=== PATIENT | female | born 1955 | race Caucasian/White ===

== ENCOUNTER → 2017-03-09 | Outpatient (CLI) | payer BC ==
[2017-03-09 11:01] VITALS: BP 118/78; PULSE 83; TEMP 97.9; BMI 30.9
--- NOTE | 2017-03-09 19:39 | FL ---
Swallow HISTORY: Dysphagia Correlation to previous exam April Patient was given high density barium to drink. Lap band shows a more vertical orientation. There is a scoliotic curvature of the lumbar spine. Degen erative disc changes are present. Following ingestion of the contrast material a somewhat distended esophagus was noted which may be fl uid-filled. There is obstruction to flow across the lap band. No evident leak. IMPRESSION: Obstruction at the level of the lap band. Additional findings above.
--- NOTE | 2017-03-12 09:03 | P.HPBAR ---
Bariatric H&P - History & Physicial H&P Date: 03/09/17 History & Physicial: Visit/CC: follow up visit Patient initial contact: Initial weight: Initial weight in pounds: Height: 5 ft 4 in Initial BMI: Last weight: Current weight: 81.873 kg Current weight in pounds: 180.50 Current BMI: 30.9 [place] body weight (based on NIH guidelines): 54.431 kg Excess body weight loss: The patient is a 62 year-old F who presents for Bariatric Assessment. Patient presents today for LAP-BAND adjustment. She states that she has had nausea vomiting for several months. Past Medical History History of Any Multi-Drug Resistant Organisms: None Reported Smoking Status: Never smoker Surgical - Exam Vital Signs Temp Pulse BP 97.9 F 83 118/78 03/09/17 10:44 03/09/17 10:44 03/09/17 10:44 - General well developed, no distress - Eyes PERRL - ENT normal pinna, normal nares - Neck no masses - Respiratory normal expansion - Cardiovascular Rhythm: regular - Abdomen Abdomen: soft, non tender Bariatric Assessment & Plan Plan: The patient's lap band adjustment. 10 mL is a snow blower band. She was ill drink water without difficulty. A follow-up in 2 weeks. Bariatric Checklist Checklist: Plan: Checklist: EGD: 1. Hiatal hernia: 2. H. Pylori: HgbA1c: Vitamin D: Smoking: Never smoker Primary care physician referral: dr gregory Psychiatry clearance: Cardiology clearance: Sleep study: Diet journal: VTE risk score: VTE risk level: Rehab needs at discharge:
== END | disposition home or self-care (01) ==
LOC: BARWHC3 10:19
PROVIDERS: ATTEND Surgery
DX: K56.69 Other intestinal obstruction (principal); R13.10 Dysphagia, unspecified
CPT/HCPCS: 74220; 99202; 99213

== ENCOUNTER 2017-03-10 10:28 | Emergency (ER) | payer BC ==
[2017-03-10] MEDS ORDERED: ASPIRIN 81 MG CHEW PO STA (10:48)
[2017-03-10 11:14] VITALS: RESP 18
[2017-03-10 11:14] LABS: Basophils % (A) 0 %; CH 32.9; CHCM 34.2; Eosinophils # (A) 0.1 k/uL (0-0.7); Eosinophils % (A) 1 %; HCT 40.8 % (34.0-46.0); HDW 2.32; HGB 13.7 gm/dL (11.4-16.0); Luc # (Auto) 0.15; Luc % (Auto) 2; Lymphocytes # (A) 1.4 k/uL (1.0-4.8); Lymphocytes % (A) 20 %; MCH 32.4 pg (25.0-35.0); MCHC 33.4 g/dL (31.0-37.0); MCV 96.7 fL (80.0-100.0); Mean Platelet Volume 6.4; Monocytes # (A) 0.5 k/uL (0-1.0); Monocytes % (A) 7 %; Neutrophils # (A) 4.9 k/uL (1.3-7.7); Neutrophils % (A) 69 %; RBC 4.22 m/uL (3.80-5.40); RDW 12.4 % (11.5-15.5); WBC 7.1 k/uL (3.8-10.6); WBC (Perox) 7.05
[2017-03-10] MEDS: NITROGLYCERIN SL TABS 0.4 MG TAB SUBLINGUAL STA ×2 (11:14→11:19)
[2017-03-10 11:26] LABS: ALT 27 U/L (9-52); AST 21 U/L (14-36); Alkaline Phosphatase 89 U/L (38-126); Amylase 72 U/L (30-110); Anion Gap 10 mmol/L; Blood Urea Nitrogen 20 mg/dL (7-17); Calcium 9.4 mg/dL (8.4-10.2); Carbon Dioxide 26 mmol/L (22-30); Chloride 105 mmol/L (98-107); Glucose 110 mg/dL (74-99); Magnesium 1.8 mg/dL (1.6-2.3); Non-African American GFR(MDRD) >60 (>60 ml/min/1.73 sqM); Potassium 3.5 mmol/L (3.5-5.1); Sodium 141 mmol/L (137-145); Total Bilirubin 0.6 mg/dL (0.2-1.3)
[2017-03-10 11:28] LABS: Partial Thromboplastin Time 22.4 sec (22.0-30.0); Prothrombin Time 10.2 sec (9.0-12.0)
[2017-03-10 11:36] LABS: Creatine Kinase 105 U/L (30-135)
[2017-03-10 11:49] LABS: Creatine Kinase MB 1.6 ng/mL (0.0-2.4); Troponin I <0.012 ng/mL (0.000-0.034)
--- NOTE | 2017-03-10 11:54 | XR ---
EXAMINATION TYPE: XR chest 2V DATE OF EXAM: 03/10/2017 11:41 AM COMPARISON: 02/04/2017 TECHNIQUE: PA and lateral views submitted. HISTORY: Chest pain FINDINGS: The lungs are clear and there is no pneumothorax, pleural effusion, or focal pneumonia. Hyperinflat ion suggests COPD. Hypertrophic and degenerative change of the spine. Arthropathy of the shoulders. N o overt failure. Deformity of the left lateral rib cage suggest previous trauma. IMPRESSION: 1. No acute process.
--- NOTE | 2017-03-10 12:19 | ED ---
Chest Pain HPI - General Chief Complaint: Chest Pain Stated Complaint: chest pain Time Seen by Provider: 03/10/17 10:38 Source: patient, RN notes reviewed Mode of arrival: wheelchair Limitations: no limitations - History of Present Illness Initial Comments: This is a 62-year-old female who presents with complaints of some abdominal pain today. She states she had an episode last evening and this morning about 30 minutes if radiation of pain it radiated up into her and across her chest sharp somewhat achy in nature it was somewhat episodic. She does states she does had her LAP-BAND decompress yesterday. She has of a history of reflux. She denies any fevers chills sweats cough or other symptoms no nausea vomiting diarrhea no fevers chills or sweats. MD Complaint: chest pain - Related Data Home Medications Medication Instructions Recorded Confirmed Biotin 5 mg PO DAILY 03/08/17 03/10/17 Cholecalciferol [Vitamin D3] 2,000 tab PO DAILY 03/08/17 03/10/17 Omeprazole 40 mg PO DAILY 03/08/17 03/10/17 traMADol HCL [Ultram] 50 mg PO DAILY PRN 03/08/17 03/10/17 Albuterol Sulfate [Proair Hfa] 1 - 2 puff INHALATION RT-Q6H PRN 03/10/17 Calcium Carbonate [Calcium] 600 mg PO DAILY 03/10/17 03/10/17 Enalapril/Hydrochlorothiazide 1 tab PO DAILY 03/10/17 03/10/17 [Enalapril-Hctz 10-25 mg Tablet] Tiotropium 18 Mcg/Puff [Spiriva] 1 cap INHALATION RT-DAILY 03/10/17 03/10/17 Allergies Allergy/AdvReac Type Severity Reaction Status Date / Time Penicillins Allergy Rash/Hives Verified 03/10/17 11:31 Review of Systems ROS Statement: Those systems with pertinent positive or pertinent negative responses have been documented in the HPI. ROS Other: All systems not noted in ROS Statement are negative. EKG Findings - EKG Results: EKG: interpreted by JOHN, WNL, sinus rhythm, normal axis, normal QRS, normal ST/ T, no acute changes (Normal sinus rhythm rate of 81 a IA interval 144 QRS duration 88 QT/QTC 366/425 st-t wave changes.) Past Medical History Past Medical History: Asthma, COPD, GERD/Reflux, Hypertension History of Any Multi-Drug Resistant Organisms: None Reported Past Surgical History: Bariatric Surgery Additional Past Surgical History / Comment(s): cataract BL Past Psychological History: No Psychological Hx Reported Smoking Status: Never smoker Past Alcohol Use History: Occasional Past Drug Use History: None Reported General Exam - General Exam Comments Initial Comments: This is a well-developed well-nourished awake alert oriented 3 female Limitations: no limitations General appearance: alert, in no apparent distress Head exam: Present: atraumatic, normocephalic, normal inspection Eye exam: Present: normal appearance, PERRL, EOMI. Absent: scleral icterus, conjunctival injection, periorbital swelling ENT exam: Present: normal exam, mucous membranes moist Neck exam: Present: normal inspection. Absent: tenderness, meningismus, lymphadenopathy Respiratory exam: Present: normal lung sounds bilaterally, chest wall tenderness (Some reproducible tenderness palpation over the left costochondral margin.). Absent: respiratory distress, wheezes, rales, rhonchi, stridor Cardiovascular Exam: Present: regular rate, normal rhythm, normal heart sounds. Absent: systolic murmur, diastolic murmur, rubs, gallop, clicks GI/Abdominal exam: Present: soft, normal bowel sounds. Absent: distended, tenderness, guarding, rebound, rigid Extremities exam: Present: normal inspection, full ROM, normal capillary refill. Absent: tenderness, pedal edema, joint swelling, calf tenderness Back exam: Present: normal inspection Neurological exam: Present: alert, oriented X3, CN II-XII intact Psychiatric exam: Present: normal affect, normal mood Skin exam: Present: warm, dry, intact, normal color. Absent: rash Course Vital Signs 03/10/17 03/10/17 03/10/17 10:29 11:13 11:18 Temperature 98.9 F Pulse Rate 86 85 90 Respiratory 17 18 18 Rate Blood Pressure 152/79 142/76 124/66 O2 Sat by Pulse 98 95 95 Oximetry 03/10/17 03/10/17 03/10/17 11:21 12:22 13:48 Temperature 99.2 F Pulse Rate 92 87 78 Respiratory 18 18 18 Rate Blood Pressure 121/64 100/64 148/79 O2 Sat by Pulse 95 95 96 Oximetry Chest Pain MDM - MDM I did review the imaging and report no acute evidence of pulmonary embolism. There was a 1.4; fact contain right adrenal mass consistent with an adenoma. The patient will be discharged this is a noncardiac nonpulmonary etiology. Disposition Clinical Impression: Atypical chest pain, Esophageal spasm Disposition: HOME SELF-CARE Condition: Good Instructions: Chest Pain (ED), Esophageal Spasm (ED) Referrals: Richar Sanchez MD [Primary Care Provider] - 1-2 days Juan Manuel Hairston MD [STAFF PHYSICIAN] - 1-2 days
[2017-03-10] MEDS ORDERED: RX INFO: IV CONTRAST WAS GIVEN 1 EACH MISC MISCELLANE PRN (12:54)
--- NOTE | 2017-03-10 14:00 | CT ---
EXAMINATION TYPE: CT angio chest DATE OF EXAM: 03/10/2017 1:49 PM COMPARISON: Previous study dated 01/26/2010. HISTORY: Chest pain CT DLP: 317.6 mGycm Automated exposure control for dose reduction was used. CONTRAST: CTA scan of the thorax is performed with IV Contrast, patient injected with 73 mL of Omnipaque 350, p ulmonary embolism protocol. FINDINGS: The lungs are clear. There is no significant axillary, internal mammary, mediastinal or hilar adenopathy. There is no evidence of pulmonary embolus. The aorta is normal in caliber without evidence of dissection. There is a lap band in place. There is a mature pouch. There is patulous of the remainder the esophag us. There is a 1.4 cm fat-containing right adrenal mass. The patient's left adrenal mass is not well seen on today's examination. The remainder the visualized upper abdomen is unremarkable. There is hypertrophic spondylosis within the dorsal spine. No bony destructive lesion is seen. IMPRESSION: 1. THIS EXAMINATION IS NEGATIVE FOR PULMONARY EMBOLUS. 2. STATUS POST LAP BAND. 3. 1.4 CM FAT-CONTAINING RIGHT ADRENAL MASS. THIS IS UNDOUBTABLY AN ADRENAL ADENOMA. 4. DEGENERATIVE CHANGE WITHIN THE SPINE.
[2017-03-10 14:18] VITALS: BP 122/70; PULSE 82; TEMP 98.1
== END 2017-03-10 14:24 | disposition home or self-care (01) ==
LOC: EC 10:28
DX: R07.89 Other chest pain (principal); K22.4 Dyskinesia of esophagus; J44.9 Chronic obstructive pulmonary disease, unspecified; I10 Essential (primary) hypertension; K21.9 Gastro-esophageal reflux disease without esophagitis; Z79.899 Other long term (current) drug therapy; Z88.0 Allergy status to penicillin; Z98.84 Bariatric surgery status
CPT/HCPCS: 36415; 93005; 85379; 83880; 80053; 82150; 82550; 82553; 83690; 83735; 84484; 85025; 85610; 85730; 71020; 71275; 99285; Q9967

== ENCOUNTER → 2017-03-22 | Outpatient (CLI) | payer BC ==
[2017-03-22 13:18] VITALS: BP 123/75; PULSE 83; RESP 14; TEMP 98.8; BMI 31.8
--- NOTE | 2017-03-22 13:33 | P.HPBAR ---
Bariatric H&P - History & Physicial H&P Date: 03/22/17 History & Physicial: Visit/CC: band adjustment/sleeve consult Patient initial contact: Initial weight: 123.831 kg Initial weight in pounds: 273.00 Height: 5 ft 4 in Initial BMI: 46.8 Last weight: Current weight: 84.232 kg Current weight in pounds: 185.70 Current BMI: 31.8 [place] body weight (based on NIH guidelines): 54.431 kg Excess body weight loss: 57.0% The patient is a 62 year-old F who presents for Bariatric Assessment. Patient presents today for adjustment of her LAP-BAND. Patient states that she is hungry. She is gaining a prostate 5 pounds since her last visit. Her band was emptied week ago due to chronic dysphagia and GERD. Her GERD symptoms have resolved since her band was emptied. Past Medical History Past Medical History: Asthma, COPD, GERD/Reflux, Hypertension History of Any Multi-Drug Resistant Organisms: None Reported Past Surgical History: Bariatric Surgery Additional Past Surgical History / Comment(s): cataract BL Past Psychological History: No Psychological Hx Reported Smoking Status: Never smoker Past Alcohol Use History: Occasional Past Drug Use History: None Reported Surgical - Exam Vital Signs Temp Pulse Resp BP 98.8 F 83 14 123/75 03/22/17 13:08 03/22/17 13:08 03/22/17 13:08 03/22/17 13:08 - General well developed, no distress - Eyes PERRL - ENT normal pinna - Respiratory normal expansion - Cardiovascular Rhythm: regular - Abdomen Abdomen: soft, non tender Bariatric Assessment & Plan Plan: Patient LAP-BAND was adjusted. She had 5 mL added to her band. She'll require without difficulty. She'll follow-up in 2 weeks. Bariatric Checklist Checklist: Plan: Checklist: EGD: 1. Hiatal hernia: 2. H. Pylori: HgbA1c: Vitamin D: Smoking: Never smoker Primary care physician referral: dr gregory Psychiatry clearance: Cardiology clearance: Sleep study: Diet journal: VTE risk score: VTE risk level: Rehab needs at discharge:
== END | disposition home or self-care (01) ==
LOC: BARWHC3 12:28
PROVIDERS: ATTEND Surgery
DX: Z48.815 Encounter for surgical aftercare following surgery on the digestive system (principal); Z98.84 Bariatric surgery status
CPT/HCPCS: 99212

== ENCOUNTER → 2017-04-26 | Outpatient (CLI) | payer BC ==
[2017-04-26 13:47] VITALS: BP 124/56; PULSE 87; RESP 14; TEMP 98.3; BMI 34.0
--- NOTE | 2017-04-26 16:29 | P.HPBAR ---
Bariatric H&P - History & Physicial H&P Date: 04/26/17 History & Physicial: Visit/CC: band fill/sleeve discussion Patient initial contact: Initial weight: 123.831 kg Initial weight in pounds: 273.00 Height: 5 ft 4 in Initial BMI: 46.8 Last weight: 186 Current weight: 90.038 kg Current weight in pounds: 198.50 Current BMI: 34.0 [place] body weight (based on NIH guidelines): 54.431 kg Excess body weight loss: 48.6% The patient is a 62 year-old F who presents for Bariatric Assessment. Patient is requesting to convert sleeve gastrectomy. She's had chronic problems with dysphagia from her LAP-BAND. Her LAP-BAND was loosened last visit. She has gained 14 pounds since this adjustment was performed. Past Medical History Past Medical History: Asthma, COPD, GERD/Reflux, Hypertension History of Any Multi-Drug Resistant Organisms: None Reported Past Surgical History: Bariatric Surgery Additional Past Surgical History / Comment(s): cataract BL Past Psychological History: No Psychological Hx Reported Smoking Status: Never smoker Surgical - Exam Vital Signs Temp Pulse Resp BP 98.3 F 87 14 124/56 04/26/17 13:35 04/26/17 13:35 04/26/17 13:35 04/26/17 13:35 - General well developed, no distress - Eyes PERRL - ENT normal pinna - Neck no masses - Respiratory normal expansion - Cardiovascular Rhythm: regular - Abdomen Abdomen: soft, non tender Bariatric Assessment & Plan Plan: Dysphagia secondary to LAP-BAND. Patient had her Brijesh adjusted slightly today she has 3 mL added to her band. Her GERD symptoms were improved once her band was entered last week. She has significant recurrence her GERD symptoms will have fluid removed from her band. The patient will be scheduled for follow -up in one month. We'll attempt obtain insurance authorization for conversion sleeve gastrectomy secondary to her chronic issues with dysphagia. Bariatric Checklist Checklist: Plan: Checklist: EGD: 1. Hiatal hernia: 2. H. Pylori: HgbA1c: Vitamin D: Smoking: Never smoker Primary care physician referral: dr gregory Psychiatry clearance: Cardiology clearance: Sleep study: Diet journal: VTE risk score: VTE risk level: Rehab needs at discharge:
== END | disposition home or self-care (01) ==
LOC: BARWHC3 13:12
PROVIDERS: ATTEND Surgery
DX: Z48.815 Encounter for surgical aftercare following surgery on the digestive system (principal); Z98.84 Bariatric surgery status; Z68.34 Body mass index [BMI] 34.0-34.9, adult; R13.10 Dysphagia, unspecified
CPT/HCPCS: 99212

== ENCOUNTER → 2017-05-05 | Outpatient (CLI) | payer BC ==
--- NOTE | 2017-05-06 09:03 | MM ---
Reason for exam: screening (asymptomatic). Last mammogram was performed 1 year and 8 months ago. History: Patient is postmenopausal and is nulliparous. Family history of premenopausal breast cancer in mother at age 41. Took estrogen for 1 year. Took progesterone for 1 year. Physical Findings: A clinical breast exam by your physician is recommended on an annual basis and results should be correlated with mammographic findings. MG Screening Mammo w CAD Bilateral CC and MLO view(s) were taken. Prior study comparison: September 18, 2015, bilateral MG screening mammo w CAD. March 20, 2014, bilateral MG screening mammo w CAD. The breast tissue is heterogeneously dense. This may lower the sensitivity of mammography. Finding: There is a 6 mm equal density (isodense), partially circumscribed irregular mass located 4 cm from the nipple in the inner quadrant, anterior position of the right breast. New finding since September 18, 2015 and March 20, 2014. ASSESSMENT: Incomplete: need additional imaging evaluation, BI-RAD 0 RECOMMENDATION: Special view mammogram of the right breast. If lesion persists on supplemental views, image directed ultrasound is recommended. [facility] will attempt to contact patient to return for supplemental views and ultrasound if indicated.
== END | disposition home or self-care (01) ==
LOC: RADMAMWWP 10:44
PROVIDERS: ATTEND Internal Medicine
DX: Z12.31 Encounter for screening mammogram for malignant neoplasm of breast (principal); Z80.3 Family history of malignant neoplasm of breast

== ENCOUNTER → 2017-05-20 | Outpatient (CLI) | payer BC ==
--- NOTE | 2017-05-20 12:39 | MM ---
Reason for exam: additional evaluation requested from abnormal screening. Last mammogram was performed less than 1 month ago. History: Patient is postmenopausal and is nulliparous. Family history of premenopausal breast cancer in mother at age 41. Took estrogen for 1 year. Took progesterone for 1 year. Physical Findings: Nurse did not find any significant physical abnormalities on exam. MG Work Up Mamm w CAD RT CC and MLO view(s) were taken of the right breast. Prior study comparison: May 05, 2017, bilateral MG screening mammo w CAD. September 18, 2015, bilateral MG screening mammo w CAD. March 20, 2014, bilateral MG screening mammo w CAD. There are scattered fibroglandular densities. The previously seen right breast asymmetry appears as fibroglandular tissue on spot compression and is similar to prior exams. There is no discrete abnormality. These results were verbally communicated with the patient and result sheet given to the patient on 05/20/17. ASSESSMENT: Negative, BI-RAD 1 RECOMMENDATION: Routine screening mammogram of both breasts in 1 year. Back on schedule.
== END | disposition home or self-care (01) ==
LOC: RADMAMWWP 08:51
PROVIDERS: ATTEND Internal Medicine
DX: R92.8 Other abnormal and inconclusive findings on diagnostic imaging of breast (principal)

== ENCOUNTER → 2017-06-14 | Outpatient (CLI) | payer BC ==
[2017-06-14 14:18] VITALS: BP 144/65; PULSE 97; RESP 16; TEMP 98.3; BMI 35.6
--- NOTE | 2017-06-14 14:23 | P.HPBAR ---
Bariatric H&P - History & Physicial H&P Date: 06/14/17 History & Physicial: Visit/CC: band/sleeve Patient initial contact: Initial weight: 123.831 kg Initial weight in pounds: 273.00 Height: 5 ft 4 in Initial BMI: 46.8 Last weight: 198 Current weight: 94.376 kg Current weight in pounds: 208.00 Current BMI: 35.6 [place] body weight (based on NIH guidelines): 54.431 kg Excess body weight loss: 42.4% The patient is a 62 year-old F who presents for Bariatric Assessment. Patient presents today for lab band follow. She is been unable to have her Brijesh adjusted secondary to issues of chronic dysphagia and GERD and epigastric pain. She is she gained 10 pounds since her last visit. She is awaiting insurance authorization for conversion sleeve gastrectomy. Past Medical History Past Medical History: Asthma, COPD, GERD/Reflux, Hypertension History of Any Multi-Drug Resistant Organisms: None Reported Past Surgical History: Bariatric Surgery Additional Past Surgical History / Comment(s): cataract BL Smoking Status: Never smoker Surgical - Exam Vital Signs Temp Pulse Resp BP 98.3 F 97 16 144/65 06/14/17 14:15 06/14/17 14:15 06/14/17 14:15 06/14/17 14:15 - General well developed, no distress - Abdomen Abdomen: soft, non tender Bariatric Assessment & Plan Plan: Morbid obesity with BMI of 36. Patient will follow-up in 8 weeks. We will obtain insurance authorization conversion sleeve gastrectomy secondary to chronic dysphagia GERD and epigastric pain. Bariatric Checklist Checklist: Plan: Checklist: EGD: 1. Hiatal hernia: 2. H. Pylori: HgbA1c: Vitamin D: Smoking: Never smoker Primary care physician referral: dr gregory Psychiatry clearance: Cardiology clearance: Sleep study: Diet journal: VTE risk score: VTE risk level: Rehab needs at discharge:
== END | disposition home or self-care (01) ==
LOC: BARWHC3 13:35
PROVIDERS: ATTEND Surgery
DX: E66.01 Morbid (severe) obesity due to excess calories (principal); J44.9 Chronic obstructive pulmonary disease, unspecified; K21.9 Gastro-esophageal reflux disease without esophagitis; I10 Essential (primary) hypertension; J45.909 Unspecified asthma, uncomplicated; Z98.84 Bariatric surgery status; Z68.36 Body mass index [BMI] 36.0-36.9, adult
CPT/HCPCS: 99211

== ENCOUNTER → 2017-07-05 | Outpatient (CLI) | payer BC ==
[2017-07-05 11:37] VITALS: BMI 36.5
== END | disposition home or self-care (01) ==
LOC: BARWHC3 08:35
PROVIDERS: ATTEND Surgery
DX: E66.01 Morbid (severe) obesity due to excess calories (principal)
CPT/HCPCS: 97804

== ENCOUNTER → 2017-07-15 | Outpatient (CLI) | payer BC ==
[2017-07-15 10:23] VITALS: BP 139/77; PULSE 70; TEMP 98.2; BMI 37.7
--- NOTE | 2017-07-15 12:44 | P.HPBAR ---
Bariatric H&P - History & Physicial H&P Date: 07/15/17 History & Physicial: Visit/CC: presurgical visit Patient initial contact: Initial weight: 123.831 kg Initial weight in pounds: 273.00 Height: 5 ft 4 in Initial BMI: 46.8 Last weight: Current weight: 99.654 kg Current weight in pounds: 219.70 Current BMI: 37.7 [place] body weight (based on NIH guidelines): 54.431 kg Excess body weight loss: 34.8% The patient is a 62 year-old F who presents for Bariatric Assessment. The patient presents today for her LAP-BAND follow-up. She is requesting fluid removed from her LAP-BAND. She is scheduled for conversion to sleeve gastrectomy. She is going to have her EGD performed . Past Medical History Past Medical History: Asthma, COPD, GERD/Reflux, Hypertension History of Any Multi-Drug Resistant Organisms: None Reported Past Surgical History: Bariatric Surgery Additional Past Surgical History / Comment(s): cataract BL Past Anesthesia/Blood Transfusion Reactions: No Reported Reaction Past Psychological History: No Psychological Hx Reported Smoking Status: Current some day smoker Past Alcohol Use History: Occasional Past Drug Use History: None Reported Surgical - Exam Vital Signs Temp Pulse BP 98.2 F 70 139/77 07/15/17 10:18 07/15/17 10:18 07/15/17 10:18 - General well developed, no distress - Eyes PERRL - ENT normal pinna - Neck no masses - Respiratory normal expansion - Cardiovascular Rhythm: regular - Abdomen Abdomen: soft, non tender Bariatric Assessment & Plan Plan: The patient LAP-BAND was empty. 8 mL was removed from her band. Bariatric Checklist Checklist: Plan: Checklist: EGD: 1. Hiatal hernia: 2. H. Pylori: HgbA1c: Vitamin D: Smoking: Current some day smoker Primary care physician referral: dr gregory Psychiatry clearance: Cardiology clearance: Sleep study: Diet journal: VTE risk score: VTE risk level: Rehab needs at discharge:
== END | disposition home or self-care (01) ==
LOC: BARWHC3 09:52
PROVIDERS: ATTEND Surgery
DX: Z48.815 Encounter for surgical aftercare following surgery on the digestive system (principal); F17.200 Nicotine dependence, unspecified, uncomplicated; Z98.84 Bariatric surgery status
CPT/HCPCS: 99212

== ENCOUNTER → 2017-07-15 | Outpatient (CLI) | payer BC ==
[2017-07-15 10:45] LABS: EKG EKG PERFORMED
[2017-07-15 11:10] LABS: Basophils % (A) 0 %; CH 32.2; CHCM 32.7; Eosinophils # (A) 0.3 k/uL (0-0.7); Eosinophils % (A) 3 %; HCT 43.5 % (34.0-46.0); HDW 2.16; HGB 14.3 gm/dL (11.4-16.0); Luc # (Auto) 0.26; Luc % (Auto) 3; Lymphocytes # (A) 1.3 k/uL (1.0-4.8); Lymphocytes % (A) 17 %; MCH 32.5 pg (25.0-35.0); MCHC 32.9 g/dL (31.0-37.0); MCV 99.1 fL (80.0-100.0); Mean Platelet Volume 6.4; Monocytes # (A) 0.7 k/uL (0-1.0); Monocytes % (A) 8 %; Neutrophils # (A) 5.5 k/uL (1.3-7.7); Neutrophils % (A) 68 %; RBC 4.39 m/uL (3.80-5.40); RDW 12.4 % (11.5-15.5); WBC (Perox) 8.65
[2017-07-15 11:20] LABS: AST 26 U/L (14-36); Alkaline Phosphatase 81 U/L (38-126); Anion Gap 12 mmol/L; Blood Urea Nitrogen 30 mg/dL (7-17); Carbon Dioxide 24 mmol/L (22-30); Chloride 103 mmol/L (98-107); Glucose 97 mg/dL (74-99); Non-African American GFR(MDRD) 52 (>60 ml/min/1.73 sqM); Potassium 4.3 mmol/L (3.5-5.1); Sodium 139 mmol/L (137-145); Total Bilirubin 0.6 mg/dL (0.2-1.3); Total Protein 7.2 g/dL (6.3-8.2)
[2017-07-15 11:35] LABS: ALT 40 U/L (9-52)
== END | disposition home or self-care (01) ==
LOC: LABPAT 10:33
PROVIDERS: ATTEND Surgery
DX: Z01.810 Encounter for preprocedural cardiovascular examination (principal); I49.9 Cardiac arrhythmia, unspecified
CPT/HCPCS: 36415; 80053; 85025; 93005

== ENCOUNTER 2017-07-20 09:18 | Day surgery (SDC) | payer BC ==
[2017-07-19 10:11] VITALS: BMI 36.8
--- NOTE | 2017-07-19 14:59 | CONS ---
CONSULTATION ATTENDING PHYSICIAN: Dr. Hairston. CONSULTING PHYSICIAN: Dr. Sanchez. REASON FOR CONSULTATION: Preoperative medical evaluation. HISTORY OF PRESENT ILLNESS: This 62-year-old female is scheduled to undergo a gastric sleeve surgery. The patient is being evaluated by Dr. Hairston. The patient has had a previous gastric band. His plan is to take the gastric band out and do the gastric sleeve. The patient does have a history of obesity. She has gained more weight lately. The weight gain is partly because of recent use of steroids. The patient is off the steroids now. The patient also has been gradually gaining weight, as well as the patient band is not working as well. She has otherwise with the band she lost about 120 pounds initially. PAST MEDICAL HISTORY: Past medical history significant for COPD due to smoking. The patient also has history of bronchial asthma. She does follow with Pulmonary. The patient has had recent exacerbation which is improved and stable. The patient has no evidence of any respiratory infection at present. She also has a history of tobacco dependency. She is weaning herself of smoking and expect to be not smoking starting this week. Past medical history also of hypertension for the past about 9 years, history of rheumatic fever with no sequelae. No history of any diabetes, malignancy, liver disease, kidney disease, ulcers, TB, hepatitis. No history of any hepatitis, myocardial infarction or CVA. Does have degenerative arthritis especially affecting the right knee joint. PAST SURGICAL HISTORY: Significant for an appendectomy, left knee arthroscopy, band surgery, bilateral cataract surgery, colonoscopy back in 2008, September 2009 which was normal. Patient is scheduled for an EGD on 07/20/2017 presurgical evaluation. PERSONAL HISTORY: Patient has been a smoker, a pack per day for over 35 years. Lately she has been trying to wean herself off. Alcohol occasional. VACCINATIONS: She gets an annual flu shot. ALLERGIES: PENICILLIN, WHICH CAUSES A RASH. MEDICATIONS: Include: 1. Spiriva. 2. Albuterol p.r.n. 3. Vitamin D. 4. Vaseretic 10/25 1 daily. 5. She also uses Prilosec 20 mg daily. 6. Tramadol 50 t.i.d. p.r.n. 7. She has been on meloxicam, which is going to be discontinued. SOCIAL HISTORY: Patient , lives with her spouse. She works with [employer] in [employer]. FAMILY MEDICAL HISTORY: Father age 79. He had an aortic aneurysm and COPD. Mother at age of 60. She had CA of the breast. She has no siblings or children. REVIEW OF SYSTEMS: Neuro: Denies any headaches, dizziness, double vision, blurred vision. No symptoms of TIA, syncope or seizures. Psych: No anxiety, depression. Cardiac: Denies chest pain, angina, palpitations. Respiratory: Chronic cough. No hemoptysis. Dyspnea on exertion. No orthopnea or PND. GI: Denies any nausea, vomiting, occasional heartburn, no dysphagia. No diarrhea, constipation, hematochezia, melena. no symptoms of dysuria, hematuria, urgency, frequency. Extremities: 2+ edema. Does have some pain in the knee joints. This has been worse since she has gained some weight. Constitutional: No fever, chills. Skin no open sores. Oral: Adequately maintained dentition. PHYSICAL EXAMINATION: Vital signs reveals blood pressure 130/80. She is 5 feet 4 inches tall, weighs 216 pounds. BMI is 37.1, pulse rate is 86 per minute, regular. HEENT: Normocephalic. NECK: Supple. Pupils reactive. Nostrils clear. Oral cavity is moist. Ears reveal no drainage. Neck reveals no JVD, carotid bruits, or thyromegaly. Chest examination increased percussion bilaterally, generalized decreased air flow. No rhonchi or wheezing appreciated. Cardiac distant heart sounds S1, S2 with no gallops. Systolic murmur 2/6 left sternal border. ABDOMEN: Soft. No palpable masses. Bowel sounds normal. No organomegaly. No abdominal bruits. Extremities revealed trace edema at the ankles. Good pedal pulses. Neurological awake, alert, oriented. Chest examination was occasional rhonchi which was clear with cough. ABDOMEN: Soft. No palpable masses. Bowel sounds normal. No organomegaly. No abdominal bruits. Extremities reveal trace edema. Good pedal pulses. NEUROLOGIC: Awake, alert, oriented x3 with well-coordinated movements. LAB ASSESSMENT: Is pending. ASSESSMENT: 1. Hypertension, controlled. 2. Chronic obstructive pulmonary disease. 3. History of tobacco dependence. 4. Degenerative arthritis in knee joints. 5. Failed gastric band surgery. PLAN: Continue present medical regimen. Patient's condition is discussed with the patient. Prognosis guarded. The patient is stable to undergo the planned surgical procedure. All nonsteroidals to be discontinued. Recommend not to take any medications morning of surgery. Prognosis remains guarded. MMODL / IJN: [id number] /
[~2017-07-20 09:18] MED LIST: LACTATED RINGERS 1,000 ML IV SCH
[2017-07-20 10:25] VITALS: TEMP 97.8
[2017-07-20] MEDS ORDERED: LIDOCAINE 1% 20 ML VIAL (10MG/ML) FOR IV START INTRADERMA ONE (10:25)
[2017-07-20] MEDS ORDERED: LIDOCAINE 1% INJ 10MG/ML (20 ML MDV) ONE (10:33)
[2017-07-20] MEDS ORDERED: PROPOFOL 10 MG/ML 20 ML VIAL IV ONE (10:33)
--- NOTE | 2017-07-20 10:36 | P.GSHP ---
History of Present Illness H&P Date: 07/20/17 Chief Complaint: Dysphagia This is a 62-year-old female who is. History of LAP-BAND surgery. Patient rents today for EGD. She's scheduled for conversion sleeve gastrectomy next week due to chronic dysphagia with her LAP-BAND. Past Medical History Past Medical History: Asthma, COPD, GERD/Reflux, Hypertension Additional Past Medical History / Comment(s): supposed to have tooth pulled 07-22-17-Dr Hairston aware, just finished course of steroids History of Any Multi-Drug Resistant Organisms: None Reported Past Surgical History: Bariatric Surgery, Hernia Repair, Orthopedic Surgery Additional Past Surgical History / Comment(s): cataract surg., lap band 8 yrs., arthroscopy knee Past Anesthesia/Blood Transfusion Reactions: No Reported Reaction Smoking Status: Former smoker - Past Family History Mother Family Medical History: Cancer Medications and Allergies Home Medications Medication Instructions Recorded Confirmed Type Biotin 5 mg PO DAILY 03/08/17 07/20/17 History Cholecalciferol [Vitamin D3] 2,000 tab PO DAILY 03/08/17 07/20/17 History Omeprazole 40 mg PO DAILY 03/08/17 07/20/17 History traMADol HCL [Ultram] 50 mg PO DAILY PRN 03/08/17 07/20/17 History Albuterol Sulfate [Proair Hfa] 1 - 2 puff INHALATION RT-Q6H PRN 03/10/17 History Calcium Carbonate [Calcium] 600 mg PO DAILY 03/10/17 07/20/17 History Enalapril/Hydrochlorothiazide 1 tab PO DAILY 03/10/17 07/20/17 History [Enalapril-Hctz 10-25 mg Tablet] Tiotropium 18 Mcg/Puff [Spiriva] 1 cap INHALATION RT-DAILY 03/10/17 07/20/17 History Budesonide/Formoterol Fumarate 2 puff INHALATION BID 04/26/17 07/20/17 History [Symbicort 160-4.5 Mcg Inhaler] Ibuprofen [Motrin] 200 - 400 mg PO Q6HR PRN 07/19/17 07/20/17 History Allergies Allergy/AdvReac Type Severity Reaction Status Date / Time Penicillins Allergy Rash/Hives Verified 07/20/17 10:10 Surgical - Exam Vital Signs Temp Pulse Resp BP Pulse Ox 97.8 F 87 16 131/72 95 07/20/17 10:24 07/20/17 10:24 07/20/17 10:24 07/20/17 10:24 07/20/17 10:24 - General well developed, no distress - Eyes PERRL - ENT normal pinna - Neck no masses - Respiratory normal expansion - Cardiovascular Rhythm: regular - Abdomen Abdomen: soft, non tender Assessment and Plan Plan: Dysphagia. We'll perform EGD.
--- NOTE | 2017-07-20 10:46 | P.OP ---
Date of Procedure: 07/20/17 Preoperative Diagnosis: Dysphagia Postoperative Diagnosis: Dysphagia Large proximal gastric pouch Mild esophagitis Procedure(s) Performed: EGD Anesthesia: MAC Surgeon: Jua nManuel Hairston Pathology: other (Antrum, esophagus) Condition: stable Disposition: PACU Description of Procedure: The patient's placed on the endoscopy table in the lateral position. She received IV sedation. The gastroscope placed oropharynx passed in the esophagus and stomach. Scope was then placed through the pylorus. The first and second portion of the duodenum appeared normal. Scope summer back the antrum and this appeared mildly inflamed. A biopsies performed. The scope was unretroflexed and remainder of the stomach appeared normal. The patient had previously placed LAP-BAND device and this was of inflammation or erosion. The proximal gastric pouch was a large. The GE junction was at40 cms. The distal esophagus was mildly inflamed a biopsies performed. The proximal esophagus appeared normal. Scope Patient.
[2017-07-20 11:06] VITALS: BP 120/62; PULSE 68; RESP 18
== END 2017-07-20 11:20 | disposition home or self-care (01) ==
LOC: ORWHC2ENDO 09:18
PROVIDERS: ATTEND Surgery
DX: R13.10 Dysphagia, unspecified (principal); K21.0 Gastro-esophageal reflux disease with esophagitis; K29.50 Unspecified chronic gastritis without bleeding; K95.09 Other complications of gastric band procedure; Y73.3 Surgical instruments, materials and gastroenterology and urology devices (including sutures) associated with adverse incidents; E66.9 Obesity, unspecified; Z68.37 Body mass index [BMI] 37.0-37.9, adult; M17.11 Unilateral primary osteoarthritis, right knee; M17.12 Unilateral primary osteoarthritis, left knee; I10 Essential (primary) hypertension; J44.9 Chronic obstructive pulmonary disease, unspecified; J45.909 Unspecified asthma, uncomplicated; F17.200 Nicotine dependence, unspecified, uncomplicated; Z88.0 Allergy status to penicillin; Z79.51 Long term (current) use of inhaled steroids; Z79.899 Other long term (current) drug therapy
CPT/HCPCS: 43239; 88305; J2001; J2704

== ENCOUNTER 2017-07-28 07:45 | Inpatient (IN) | payer BC ==
[~2017-07-28 07:45] MED LIST changes: +ACETAMINOPHEN TAB 500 MG TAB PO ONE; +DEXAMETHASONE SOD PHOSPHATE 10 MG/ML 1 ML VIAL IV ONE; +ENOXAPARIN 40 MG/0.4 ML SYRINGE SQ ONE; +HYDROmorphone 0.5 MG/0.5 ML SYRINGE IVP PRN; -LACTATED RINGERS 1,000 ML IV SCH; +LIDOCAINE 1% 20 ML VIAL (10MG/ML) FOR IV START INTRADERMA PRN; +MIDAZOLAM 2 MG/2 ML VIAL IV PRN; +ONDANSETRON 4 MG/2 ML VIAL IVP ONE; +SCOPOLAMINE 1.5MG/72HR PATCH TRANSDERM ONE; +ceFAZolin 2 GM in SODIUM CHLORIDE 0.9% 100 ML IVPB ONE
[2017-07-28] MEDS: LACTATED RINGERS 1,000 ML IV SCH (09:02)
--- NOTE | 2017-07-28 09:27 | P.GSHP ---
History of Present Illness H&P Date: 07/28/17 Chief Complaint: GERD, dysphagia, morbid obesity This a 62-year-old female who presents today for removal of LAP-BAND conversion sleeve gastrectomy. Patient developed GERD and dysphagia related to her LAP- BAND. Patient is aware the risks of surgery including conversion to open procedure and injury to the stomach liver spleen. Also a risk of gastric staple line perforation, bleeding and scarring. Past Medical History Past Medical History: Asthma, COPD, GERD/Reflux, Hypertension Additional Past Medical History / Comment(s): supposed to have tooth pulled 07-22-17-Dr Hairston aware, just finished course of steroids, resolving cold sore on lip History of Any Multi-Drug Resistant Organisms: None Reported Past Surgical History: Bariatric Surgery, Hernia Repair, Orthopedic Surgery Additional Past Surgical History / Comment(s): cataract surg., lap band 8 yrs., arthroscopy knee Past Anesthesia/Blood Transfusion Reactions: No Reported Reaction Past Psychological History: No Psychological Hx Reported Smoking Status: Former smoker Past Alcohol Use History: Occasional Additional Past Alcohol Use History / Comment(s): quit smoking 7-8 months ago, 1ppd for 40 yrs., still using e-cig. Past Drug Use History: None Reported - Past Family History Mother Family Medical History: Cancer Medications and Allergies Home Medications Medication Instructions Recorded Confirmed Type Biotin 5 mg PO DAILY 03/08/17 07/28/17 History Cholecalciferol [Vitamin D3] 2,000 tab PO DAILY 03/08/17 07/28/17 History Omeprazole 40 mg PO DAILY 03/08/17 07/28/17 History traMADol HCL [Ultram] 50 mg PO DAILY PRN 03/08/17 07/28/17 History Albuterol Sulfate [Proair Hfa] 1 - 2 puff INHALATION RT-Q6H PRN 03/10/17 History Calcium Carbonate [Calcium] 600 mg PO DAILY 03/10/17 07/28/17 History Enalapril/Hydrochlorothiazide 1 tab PO 1400 03/10/17 07/28/17 History [Enalapril-Hctz 10-25 mg Tablet] Tiotropium 18 Mcg/Puff [Spiriva] 1 cap INHALATION RT-DAILY 03/10/17 07/28/17 History Budesonide/Formoterol Fumarate 2 puff INHALATION BID 04/26/17 07/28/17 History [Symbicort 160-4.5 Mcg Inhaler] Ibuprofen [Motrin] 200 - 400 mg PO Q6HR PRN 07/19/17 07/28/17 History Acyclovir 5% Oint [Zovirax Oint] 1 applic TOPICAL 5XD 07/27/17 07/28/17 History Nicotine 21Mg/24Hr Patch [Habitrol 1 each TRANSDERM DAILY 07/27/17 07/28/17 History 21Mg/24Hr Patch] Allergies Allergy/AdvReac Type Severity Reaction Status Date / Time Penicillins Allergy Rash/Hives Verified 07/28/17 08:46 Surgical - Exam Vital Signs Resp 16 07/28/17 08:38 - General well developed, no distress - Eyes PERRL - ENT normal pinna - Neck no masses - Respiratory normal expansion - Cardiovascular Rhythm: regular - Abdomen Abdomen: soft, non tender, surgical scars (Laparoscopic) Assessment and Plan Plan: GERD, dysphagia, obesity. Patient will undergo removal LAP-BAND conversion sleeve gastrectomy.
[2017-07-28] MEDS ORDERED: METHYLENE BLUE 30 MG in DEXTROSE 5% IN WATER 500 ML IRRIGATION ONE ×2 (09:36)
[2017-07-28] MEDS ORDERED: ROCURONIUM BROMIDE 10 MG/ML 10 ML VIAL IV ONE (10:06)
[2017-07-28] MEDS ORDERED: fentaNYL (PF) 50 MCG/ML 2 ML AMP ONE (10:06)
[2017-07-28] MEDS ORDERED: LABETALOL 5 MG/ML VIAL MDV ONE (10:06)
[2017-07-28] MEDS ORDERED: GLYCOPYRROLATE 0.2 MG/ML 2 ML VIAL ONE (10:06)
[2017-07-28] MEDS ORDERED: MIDAZOLAM 2 MG/2 ML VIAL ONE (10:06)
[2017-07-28] MEDS ORDERED: ONDANSETRON 4 MG/2 ML VIAL ONE (10:06)
[2017-07-28] MEDS ORDERED: ESMOLOL 100 MG/10 ML VIAL ONE (10:06)
[2017-07-28] MEDS ORDERED: HYDROmorphone (PF) 1 MG/ML ONE (10:06)
[2017-07-28] MEDS ORDERED: SUCCINYLCHOLINE CHLORIDE 100 MG/5 ML SYR IV ONE (10:06)
[2017-07-28] MEDS ORDERED: LIDOCAINE 1% INJ 10MG/ML (20 ML MDV) ONE (10:06)
[2017-07-28] MEDS ORDERED: NEOSTIGMINE 1 MG/ML 10 ML VIAL ONE (10:06)
[2017-07-28] MEDS ORDERED: PROPOFOL 10 MG/ML 20 ML VIAL IV ONE (10:06)
[2017-07-28] MEDS ORDERED: LIDOCAINE 2%-EPI 1:100,000 20 ML VIAL SQ ONE (10:34)
[2017-07-28] MEDS ORDERED: BUPIVACAINE (PF) 0.25% 30 ML VIAL SQ ONE (10:34)
[2017-07-28] MEDS ORDERED: LACTATED RINGERS 1,000 ML IV ONE (11:09)
[2017-07-28] MEDS ORDERED: NALOXONE 0.4 MG/ML 1 ML VIAL IV PRN (11:56)
--- NOTE | 2017-07-28 11:56 | P.OP ---
Date of Procedure: 07/28/17 Preoperative Diagnosis: Dysphagia GERD Postoperative Diagnosis: GERD Dysphagia Procedure(s) Performed: Laparoscopic Lysis of adhesions Laparoscopic removal of LAP-BAND port Laparoscopic sleeve gastrectomy BMI 35 Anesthesia: JUSTIN Surgeon: Juan Manuel Hairston Estimated Blood Loss (ml): 20 Pathology: other (Gastric remnant) Condition: stable Disposition: PACU Description of Procedure: The patient was placed on the operating table in the supine position. She received general anesthesia. She was then placed in dorsal lithotomy position. Her abdomen was prepped and draped usual sterile fashion. The skin incision sites were anesthetized 1% local Xylocaine. The skin was incised at the LAP- BAND port and then using blunt and sharp dissection with cautery the LAP-BAND port was dissected free. The connecting tube tube was then cut. Using a 5 mm optical trocar under direct visualization peritoneal cavity is entered. Upon entering the pleural cavity abdomen was insufflated and then the laparoscope was placed back into the perineal cavity. A fibrillar trocar was placed in the right epigastric position, right lateral position, left lateral position. And a 15 mm trocar was placed at the supraumbilical position. The adhesions to the LAP-BAND device was then placed using sharp dissection and the Metzenbaum scissors and Harmonic scissors. The anterior gastric wall plication was taken down using sharp dissection. Care was taken to identify and preserve the gastric wall. The greater curvature of the stomach was then dissected using the Harmonic scissors. The dissection occurred approximately 5 surgeon pylorus to the level of the left catrachito. The LAP-BAND device was then dissected free and the buckle was undone. The LAP-BAND device was then withdrawn from the stomach. And extracted through the 15 mm trocar site. The hiatus was visualized. The previous small hiatal hernia. The right and left catrachito were dissected using Harmonic scissors. And then the hiatal hernia was repaired using 2-0 Ethibond secured with a tie knot device. Next a 40-Eth[place]ian bougie dilator was placed oropharynx passed in the esophagus stomach. In the sleeve gastrectomy was performed by sequential firings of the powered echelon stapling device. Seam guard was used as a buttress material. Once the gastrectomy was performed. The gastrium was withdrawn. The dilator was withdrawn. An orogastric tube was placed in the stomach was insufflated with methylene blue normal saline. There is known evidence of extravasation. The abdomen was irrigated. There is no bleeding seen. The trochars withdrawn. The fascia of the 15 mm sites closed with 0 Vicryl suture. Skin was closed interrupted 3-0 Monocryl suture. Dermabond was applied.
[2017-07-28] MEDS ORDERED: ACETAMINOPHEN IV (For NPO) 1,000 MG in EMPTY BAG 1 BAG IVPB ONE (12:45)
[2017-07-28] MEDS: KETOROLAC 30 MG/ML 1 ML VIAL IVP SCH ×2 (14:06→18:08)
[2017-07-28] MEDS: ALBUTEROL NEBULIZED 2.5 MG/3 ML INHALATION SCH ×2 (15:37→15:40)
[2017-07-28] MEDS: 0.9% NACL WITH KCL 20 MEQ/L 1,000 ML IV SCH (15:59)
[2017-07-28] MEDS: HYDROmorphone 1 MG/ML 1 ML SYRINGE IVP PRN (16:40)
--- NOTE | 2017-07-28 17:44 | PN ---
PROGRESS NOTE CHIEF COMPLAINT: Re-evaluation. HISTORY OF PRESENT ILLNESS: This 62-year-old was admitted to the hospital and has undergone gastric sleeve surgery. I have been asked to see the patient postoperatively. The patient does have a history of hypertension and COPD. At present she is doing relatively well except for complaints of lower back pain, where she has a history of chronic degenerative arthritis. Denies much abdominal pain. PAST MEDICAL HISTORY: 1. Hypertension. 2. COPD. 3. Degenerative arthritis affecting the knee joint and lumbosacral spine. 4. Tobacco dependence. PAST SURGICAL HISTORY: 1. Band surgery. 2. Arthroscopy knee. REVIEW OF SYSTEMS: NEURO: Denies any headaches, dizziness. PSYCH: No anxiety. CARDIAC: No chest pain, angina, palpitation. RESPIRATORY: Denies shortness of breath. Mild cough. No hemoptysis. GI: No nausea, vomiting. Some abdominal discomfort but tolerable at present. EXTREMITIES: No pain, edema. MUSCULOSKELETAL: Lower back pain. CONSTITUTIONAL: No fever or chills. PHYSICAL EXAMINATION: Pleasant female in no distress. Vital signs reveal temperature 97.8, pulse 74, respirations 16, blood pressure 136/60, pulse ox 92% on 2 L. HEENT: Normocephalic. NECK: No JVD. CHEST: Decreased generalized air flow. No rhonchi or wheezing. CARDIAC: Distant sounds S1, S2 with no gallop. Systolic murmur 2/6, left sternal border. ABDOMEN: Mildly tender. Bowel sounds present. Extremities reveal trace edema in the ankles. Good pulses,, both upper and lower extremities. Neurologically awake, alert, oriented with well-coordinated movements. LABORATORY ASSESSMENT: None new. ASSESSMENT: 1. Chronic obstructive pulmonary disease. 2. Tobacco dependency. 3. History of hypertension, on medical therapy. 4. Obesity, status post gastric sleeve surgery. PLAN: The patient is stable. Continue present medical regimen. Patient's condition was discussed with the patient. Prognosis is guarded. Patient is n.p.o. If the patient's blood pressure goes up, will use Vasotec IV. Meanwhile, the patient will be given pain medication and Dilaudid for her lower back pain and a heating pad. The patient's general condition was discussed with the patient. Prognosis guarded. Antihypertensives will be held for now. Oral medications have been held. MMODL / IJN: [id number] /
[2017-07-28] MEDS: CLINDAMYCIN 900 MG in DEXTROSE 5% IN WATER 50 ML IVPB SCH ×2 (18:10)
[2017-07-28] MEDS: IPRATROPIUM-ALBUTEROL 3 ML NEB INHALATION PRN (18:42)
[2017-07-28] MEDS: SYMBICORT 160-4.5 MCG INHALER INHALATION SCH (18:42)
[2017-07-28] MEDS: FAMOTIDINE 20 MG TAB PO SCH (22:09)
[2017-07-29] MEDS: 0.9% NACL WITH KCL 20 MEQ/L 1,000 ML IV SCH ×2 (00:06→05:17)
[2017-07-29] MEDS: HYDROmorphone 1 MG/ML 1 ML SYRINGE IVP PRN ×3 (00:07→20:53)
[2017-07-29] MEDS: KETOROLAC 30 MG/ML 1 ML VIAL IVP SCH ×4 (02:28→17:03)
[2017-07-29] MEDS: CLINDAMYCIN 900 MG in DEXTROSE 5% IN WATER 50 ML IVPB SCH ×2 (02:29)
[2017-07-29 07:21] LABS: Basophils % (A) 0 %; CH 32.4; CHCM 32.7; Eosinophils % (A) 0 %; HDW 2.18; HGB 12.3 gm/dL (11.4-16.0); Luc # (Auto) 0.22; Luc % (Auto) 2; Lymphocytes # (A) 0.9 k/uL (1.0-4.8); Lymphocytes % (A) 8 %; MCH 32.2 pg (25.0-35.0); MCHC 32.4 g/dL (31.0-37.0); MCV 99.5 fL (80.0-100.0); Mean Platelet Volume 6.9; Monocytes # (A) 0.9 k/uL (0-1.0); Monocytes % (A) 8 %; Neutrophils # (A) 8.7 k/uL (1.3-7.7); Neutrophils % (A) 82 %; RBC 3.82 m/uL (3.80-5.40); RDW 12.3 % (11.5-15.5); WBC 10.7 k/uL (3.8-10.6)
[2017-07-29 07:52] LABS: Calcium 8.8 mg/dL (8.4-10.2); Magnesium 1.7 mg/dL (1.6-2.3); Phosphorous 3.9 mg/dL (2.5-4.5); Potassium 4.4 mmol/L (3.5-5.1)
[2017-07-29] MEDS: LACTATED RINGERS 1,000 ML IV SCH ×3 (07:55→09:35)
[2017-07-29] MEDS: FAMOTIDINE 20 MG TAB PO SCH (08:01)
[2017-07-29] MEDS: PANTOPRAZOLE 40 MG/10 ML VIAL IV SCH (08:01)
[2017-07-29] MEDS: NICOTINE 21MG/24HR PATCH TRANSDERM SCH (08:01)
[2017-07-29] MEDS: ENOXAPARIN 40 MG/0.4 ML SYRINGE SQ SCH ×2 (08:01→20:59)
--- NOTE | 2017-07-29 08:35 | FL ---
EXAMINATION TYPE: FL UGI DATE OF EXAM: 07/29/2017 COMPARISON: 03/09/2017 HISTORY: Status post gastric lap band removal followed by gastric sleeve on 07/28/2017. TECHNIQUE: A single contrast UGI study is performed utilizing Omnipaque 350, 1 minute and 12 seconds of fluoroscopy time, and 26 images saved. FINDINGS: Mechanical Integrity Specialist image of the abdomen shows no gross abnormality. The esophagus shows delayed motility and a few tertiary contractions before emptying into the stomach . Mild functional stricture is noted, likely secondary to postoperative edema. Intraesophageal reflux was seen during real time performance of this study. No contrast extravasation was seen. Contrast wa s seen extending into the proximal small bowel. IMPRESSION: Delayed motility, mild intraesophageal reflux and few tertiary contractions related to a mild functional stricture at the gastroesophageal junction that is likely secondary to postoperative edema. No extravasation.
[2017-07-29] MEDS: SYMBICORT 160-4.5 MCG INHALER INHALATION SCH ×2 (08:38→19:42)
[2017-07-29] MEDS: IPRATROPIUM-ALBUTEROL 3 ML NEB INHALATION PRN ×2 (08:39→19:41)
[2017-07-29] MEDS ORDERED: SODIUM CHLORIDE 0.9% 1,000 ML BAG ONE (08:52)
[2017-07-29] MEDS: 1: MVI, ADULT NO.4 WITH VIT K 10 ML, THIAMINE 100 MG, FOLIC ACID 1 MG, POTASSIUM CHLORID IV SCH ×12 (08:52→19:00)
[2017-07-29] MEDS: ONDANSETRON 4 MG/2 ML VIAL IVP PRN ×2 (10:21→20:59)
[2017-07-29 11:48] VITALS: BMI 34.8
--- NOTE | 2017-07-29 14:42 | P.PN ---
Subjective Progress Note Date: 07/29/17 61-year-old female seen and examined at bedside. Patient states she has been up ambulating in the hallway. Patient continues to report having "a lot of gas. Patient is postop done on July 28 laparoscopic removal of the LAP-BAND port, laparoscopic sleeve gastrectomy patient does have a history of esophageal reflux with dysphagia and morbid obesity. Objective - Vital Signs Vital signs: Vital Signs Temp 97.8 F 07/29/17 08:04 Pulse 92 07/29/17 08:48 Resp 20 07/29/17 08:41 BP 111/62 07/29/17 08:04 Pulse Ox 94 L 07/29/17 08:41 Intake & Output 07/28/17 07/29/17 07/29/17 18:59 06:59 18:59 Intake Total 1500 Output Total 10 Balance 1490 Weight 92.034 kg 92.034 kg Intake: IV 1500 Output: Estimated Blood Loss 10 Other: Voiding Method Toilet Toilet # Voids 1 1 - Exam Physical exam Pleasant 62-year-old female resting in bed appears in no acute distress Lungs essentially clear with adequate air movement sats 94%, on room air Heart S1-S2 audible regular Abdomen surgical sites benign no redness surgical tenderness appropriate states not passing any gas no stool nondistended Extremities Venodyne's on to the bilateral lower extremities - Labs CBC & Chem 7: 07/29/17 06:46 07/29/17 06:46 Labs: Abnormal Lab Results - Last 24 Hours (Table) 07/29/17 07/29/17 Range/Units 06:46 06:46 WBC 10.7 H (3.8-10.6) k/uL Neutrophils # 8.7 H (1.3-7.7) k/uL Lymphocytes # 0.9 L (1.0-4.8) k/uL Chloride 108 H (98-107) mmol/L Carbon Dioxide 21 L (22-30) mmol/L BUN 29 H (7-17) mg/dL Creatinine 1.15 H (0.52-1.04) mg/dL Assessment and Plan Plan: Impression History of esophageal reflux Morbid obesity July 28 laparoscopic lysis of adhesions, removal of the LAP-BAND port, sleeve gastrectomy Plan Continue postop surgical care Bariatric clear liquid diet as ordered Diet patient consult Pain control PT OT eval The above impression and plan of care have been discussed and directed by signing physician. Rayne Porras nurse practitioner acting as scribe for signing physician.
[2017-07-30] MEDS: KETOROLAC 30 MG/ML 1 ML VIAL IVP SCH ×2 (00:55→06:50)
[2017-07-30] MEDS: LACTATED RINGERS 1,000 ML IV SCH (06:47)
[2017-07-30] MEDS: IPRATROPIUM-ALBUTEROL 3 ML NEB INHALATION PRN (06:55)
[2017-07-30] MEDS: SYMBICORT 160-4.5 MCG INHALER INHALATION SCH (06:56)
[2017-07-30 07:49] VITALS: BP 121/59; PULSE 90; RESP 16; TEMP 97.7
[2017-07-30] MEDS ORDERED: SODIUM CHLORIDE 0.9% 1,000 ML BAG ONE (08:04)
[2017-07-30] MEDS: 1: MVI, ADULT NO.4 WITH VIT K 10 ML, THIAMINE 100 MG, FOLIC ACID 1 MG, POTASSIUM CHLORID IV SCH ×6 (08:04)
[2017-07-30] MEDS: NICOTINE 21MG/24HR PATCH TRANSDERM SCH (08:05)
[2017-07-30] MEDS: ENOXAPARIN 40 MG/0.4 ML SYRINGE SQ SCH (08:06)
[2017-07-30] MEDS: PANTOPRAZOLE 40 MG/10 ML VIAL IV SCH (08:06)
--- NOTE | 2017-07-30 08:41 | PN ---
PROGRESS NOTE ATTENDING PHYSICIAN: Dr. Hairston. CONSULTING PHYSICIAN: Dr. Wellington Sanchez. CHIEF COMPLAINT: Re-evaluation. HISTORY OF PRESENT ILLNESS: This is a 62-year-old female is status post gastric sleeve surgery. She is doing relatively well today. The patient has had no nausea or vomiting. Minimal abdominal pain. No bowel movement. Denies any symptoms of chest pain. No shortness of breath. She does have a history of COPD. The patient has a history of tobacco dependency and she is on nicotine patch with no symptoms of withdrawal. REVIEW OF SYSTEMS: Neuro denies any headaches or dizziness. Psych: No anxiety. Cardiac no chest pain, angina, palpitation. RESPIRATORY: Denies shortness of breath, cough, hemoptysis. GI no nausea, vomiting, any dysphagia towards clear bariatric liquid diet. The patient has minimal abdominal pain. No bowel movement. No blood in the stool. No dysuria, hematuria. Extremities denies pain, edema. CONSTITUTIONAL: No fever, chills. Patient has been up and about. PHYSICAL EXAMINATION: Pleasant female in no distress. Vital signs reveals temperature 97.7, pulse 90, respirations 16, blood pressure 121/59, pulse ox 93% on room air. HEENT: Normocephalic. Neck no JVD. CHEST: Clear to auscultation. Cardiac normal S1, S2 with no gallops, murmurs. Abdomen minimal tenderness. Bowel sounds active. Extremities revealed no edema. No tenderness. Neurological awake, alert, oriented with well-coordinated movements. LABORATORY DATA: CBC yesterday, white count 10.7, hemoglobin 12.3. Electrolytes are normal. BUN 29, creatinine 1.15. The patient's upper GI had some suggestion of mild edema lower in the esophagus otherwise no leak. ASSESSMENT: 1. Chronic obstructive pulmonary disease, stable. 2. Hypertension on medical therapy. 3. Chronic kidney disease Stage III. 4. Status post gastric sleeve surgery. PLAN: Continue present medical regimen. Patient's condition discussed with the patient. Potential discharge home today. The patient instructed to follow strictly the guidelines and provided to her regarding a diet. The patient's blood pressure medication will be held for now. Continue present regimen. MMODL / IJN: [id number] /
[2017-07-30] MEDS ORDERED: FAMOTIDINE 20 MG TAB PO SCH (09:00)
[2017-07-30] MEDS ORDERED: HYDROcodone/APAP 15 ML SOLUTION PO PRN (09:42)
--- NOTE | 2017-07-30 11:46 | P.DS ---
Providers Date of admission: 07/28/17 08:24 Expected date of discharge: 07/30/17 Attending physician: Juan Manuel Hairston Consults: 07/28/17 11:56 Consult Physician Routine Consulting Provider: Richar Sanchez Consult Reason/Comments: Medical management Do you want consulting provider notified?: Yes Primary care physician: Richar Sanchez [facility] Course: 62-year-old female presented on an elective basis to undergo July 28 laparoscopic removal of the LAP-BAND port, laparoscopic sleeve gastrectomy. Patient has history of esophageal reflux with dysphagia and morbid obesity. Postop there were no new events. on the day of discharge patient was up ambulating in the hallway stated pain medication was effective for pain control surgical sites no redness. The white count on July 29 10.7 electrolytes within normal the creatinine 1. 2 patient has a history of chronic kidney disease stage III patient had an upper GI suggesting mild edema in the lower esophagus with no leak Patient was felt to be hemodynamically stable and appropriate proceed with a discharge to home. Patient was seen by the bariatric service was given instructions on the bariatric diet. Provided guidelines and information regarding the diet verbalized understanding Impression discharge diagnosis Chronic kidney disease stage III Essential hypertension History of esophageal reflux Morbid obesity July 28 laparoscopic lysis of adhesions, removal of the LAP-BAND port, sleeve gastrectomy The above impression and plan of care have been discussed and directed by signing physician. Rayne Porras nurse practitioner acting as scribe for signing physician. Plan - Discharge Summary New Discharge Prescriptions: New HYDROcodone/APAP [[place] Elixir 7.5-325Mg/15Ml] 15 ml PO Q6H PRN #240 dose PRN Reason: Pain Continue Cholecalciferol [Vitamin D3] 2,000 tab PO DAILY Omeprazole 40 mg PO DAILY Biotin 5 mg PO DAILY Tiotropium 18 Mcg/Puff [Spiriva] 1 cap INHALATION RT-DAILY Enalapril/Hydrochlorothiazide [Enalapril-Hctz 10-25 mg Tablet] 1 tab PO DAILY @1400 Albuterol Sulfate [Proair Hfa] 1 - 2 puff INHALATION RT-Q6H PRN PRN Reason: Shortness Of Breath Calcium Carbonate [Calcium] 600 mg PO DAILY Budesonide/Formoterol Fumarate [Symbicort 160-4.5 Mcg Inhaler] 2 puff INHALATION RT-BID Nicotine 21Mg/24Hr Patch [Habitrol] 1 patch TRANSDERM DAILY Acyclovir 5% Oint [Zovirax Oint] 1 applic TOPICAL 5XD Discontinued traMADol HCL [Ultram] 50 mg PO DAILY PRN PRN Reason: Pain Ibuprofen [Motrin] 200 - 400 mg PO Q6HR PRN PRN Reason: Pain Discharge Medication List Biotin 5 mg PO DAILY 03/08/17 [History] Cholecalciferol [Vitamin D3] 2,000 tab PO DAILY 03/08/17 [History] Omeprazole 40 mg PO DAILY 03/08/17 [History] Albuterol Sulfate [Proair Hfa] 1 - 2 puff INHALATION RT-Q6H PRN 03/10/17 [ History] Calcium Carbonate [Calcium] 600 mg PO DAILY 03/10/17 [History] Enalapril/Hydrochlorothiazide [Enalapril-Hctz 10-25 mg Tablet] 1 tab PO DAILY@ 1400 03/10/17 [History] Tiotropium 18 Mcg/Puff [Spiriva] 1 cap INHALATION RT-DAILY 03/10/17 [History] Budesonide/Formoterol Fumarate [Symbicort 160-4.5 Mcg Inhaler] 2 puff INHALATION RT-BID 04/26/17 [History] Acyclovir 5% Oint [Zovirax Oint] 1 applic TOPICAL 5XD 07/27/17 [History] Nicotine 21Mg/24Hr Patch [Habitrol] 1 patch TRANSDERM DAILY 07/27/17 [History] HYDROcodone/APAP [[place] Elixir 7.5-325Mg/15Ml] 15 ml PO Q6H PRN #240 dose [Rx] Follow up Appointment(s)/Referral(s): Adam Wilson MD [Medical Doctor] - 1 Week Juan Manuel Hairston MD [STAFF PHYSICIAN] - 1 Week Richar Sanchez MD [Primary Care Provider] - 1 Week Activity/Diet/Wound Care/Special Instructions: Continue with the bariatric clear diet Shower daily No tub bath No lifting greater than 4 pounds until seen in the follow-up visit NO NSAID Discharge Disposition: HOME SELF-CARE
== END 2017-07-30 12:33 | disposition home or self-care (01) | DRG 328 ==
LOC: 2ORWHC 08:24 → 3SUR 12:33
PROVIDERS: ADMIT Surgery; ATTEND Surgery
PROC: 0DB64Z3 Excision of Stomach, Percutaneous Endoscopic Approach, Vertical (ICD-10-PCS; principal; 2017-07-28 09:30)
PROC: 0DP64CZ Removal of Extraluminal Device from Stomach, Percutaneous Endoscopic Approach (ICD-10-PCS; principal; 2017-07-28 09:30)
DX: K95.09 Other complications of gastric band procedure (principal); E66.01 Morbid (severe) obesity due to excess calories; N18.3 Chronic kidney disease, stage 3 (moderate); I12.9 Hypertensive chronic kidney disease with stage 1 through stage 4 chronic kidney disease, or unspecified chronic kidney disease; J44.9 Chronic obstructive pulmonary disease, unspecified; K21.9 Gastro-esophageal reflux disease without esophagitis; R13.10 Dysphagia, unspecified; Z68.37 Body mass index [BMI] 37.0-37.9, adult; Z79.51 Long term (current) use of inhaled steroids; Z79.899 Other long term (current) drug therapy; Z87.891 Personal history of nicotine dependence; M16.10 Unilateral primary osteoarthritis, unspecified hip; M47.897 Other spondylosis, lumbosacral region
CPT/HCPCS: 74240; 80051; 82310; 82565; 83735; 84100; 84520; 85025; 88307; 94640; 94760

== ENCOUNTER → 2017-08-19 | Outpatient (CLI) | payer BC ==
[2017-08-19 10:42] VITALS: BP 134/77; PULSE 67; RESP 20; TEMP 98.3; BMI 33.5
--- NOTE | 2017-10-04 16:39 | P.HPBAR ---
Bariatric H&P - History & Physicial H&P Date: 08/19/17 History & Physicial: Visit/CC: sleeve 119/09/03 Patient initial contact: Initial weight: 123.831 kg Initial weight in pounds: 273.00 Height: 5 ft 4 in Initial BMI: 46.8 Last weight: Current weight: 88.496 kg Current weight in pounds: 195.10 Current BMI: 33.5 [place] body weight (based on NIH guidelines): 54.431 kg Excess body weight loss: 50.9% The patient is a 62 year-old F who presents for Bariatric Assessment. The patient status post sleeve yesterday. She is doing quite well. She's had some mild GERD. Past Medical History Past Medical History: Asthma, COPD, GERD/Reflux, Hypertension Additional Past Medical History / Comment(s): supposed to have tooth pulled 07-22-17-Dr Hairston aware, just finished course of steroids, resolving cold sore on lip History of Any Multi-Drug Resistant Organisms: None Reported Past Surgical History: Bariatric Surgery, Hernia Repair, Orthopedic Surgery Additional Past Surgical History / Comment(s): cataract surg., lap band 8 yrs., arthroscopy knee sleeve gastrectomy 08-03 Past Anesthesia/Blood Transfusion Reactions: No Reported Reaction Smoking Status: Former smoker - Past Family History Mother Family Medical History: Cancer Surgical - Exam Vital Signs Temp Pulse Resp BP 98.3 F 67 20 134/77 08/19/17 10:41 08/19/17 10:41 08/19/17 10:41 08/19/17 10:41 - General well developed, no distress - Eyes PERRL - ENT normal pinna - Neck no masses - Respiratory normal expansion - Abdomen Abdomen: soft, non tender Bariatric Assessment & Plan Plan: Patient is doing well from her sister gastric. She will follow-up in 4 weeks. Bariatric Checklist Checklist: Plan: Checklist: EGD: 1. Hiatal hernia: 2. H. Pylori: HgbA1c: Vitamin D: Smoking: Former smoker Primary care physician referral: dr gregory Psychiatry clearance: Cardiology clearance: Sleep study: Diet journal: VTE risk score: VTE risk level: Rehab needs at discharge:
== END | disposition home or self-care (01) ==
LOC: BARWHC3 10:02
PROVIDERS: ATTEND Surgery
DX: E66.01 Morbid (severe) obesity due to excess calories (principal); J44.9 Chronic obstructive pulmonary disease, unspecified; I10 Essential (primary) hypertension; J45.909 Unspecified asthma, uncomplicated; Z87.891 Personal history of nicotine dependence; Z98.84 Bariatric surgery status
CPT/HCPCS: 97803; 99211

== ENCOUNTER → 2018-04-28 | Outpatient (CLI) | payer BC ==
--- NOTE | 2018-04-28 10:25 | CTL ---
EXAMINATION TYPE: CT Low Dose Lung DATE OF EXAM ORDERED: 04/28/2018 HISTORY: Personal history of tobacco abuse. Lung cancer screening CT DLP: 75.[address] CTDI: 2.2 mGy Automated exposure control for dose reduction was used. SCREENING VISIT: Initial COMPARISON: CTA chest dated 03/10/2017. TECHNIQUE: Low dose computed tomography scan was performed through the chest at 1 mm thick sections a nd reconstructed images in the coronal plane at [address] DIAGNOSTIC QUALITY: Satisfactory FINDINGS: LUNG NODULES: Tethering the right major fissure inferiorly on series 4 image 173 and series 8 image 1 07 there is an elongated density favored to represent fibrosis and pleural thickening although there is a 5 mm nodular component that appears solid on soft tissue windows. No additional pulmonary nodules are seen bilaterally. LUNGS: COPD: Severity: Mild centrilobular Fibrosis: Severity: None Lymph nodes: No adenopathy Other findings: Scattered subsegmental atelectasis is seen. RIGHT PLEURAL SPACE: Effusion: None Calcification: None Thickening: None Pneumothorax: None LEFT PLEURAL SPACE: Effusion: None Calcification: None Thickening: None Pneumothorax: None HEART: Heart Size: Nonenlarged Coronary calcification: None Pericardial effusion: None OTHER FINDINGS: Upper abdomen: Postsurgical changes of partial gastrectomy are seen, otherwise unenhanced images are grossly unremarkable. Bony thorax: Grossly intact with moderate multilevel degenerative disc disease of the visualized spin e. Supraclavicular region: No adenopathy Other: Thyroid gland is unremarkable in its visualized portions. IMPRESSION: Area of probable scarring with associated 5 mm pulmonary nodularity along the right major fissure. Findings are compatible with LUNG RADS 2- nodules a very low likelihood of becoming a clini nadir active cancer due to lack of size-benign appearance or behavior-continued annual screening with low dose CT in 12 months is recommended to ensure no interval growth. FOLLOW UP CT CHEST RECOMMENDATION: Continued annual screening with low dose CT in [address] LUNG RAD: Lung-Rad 2 Benign Appearance or Behavior
== END | disposition home or self-care (01) ==
LOC: RADCTMAIN 09:11
PROVIDERS: ATTEND Internal Medicine Critical Care Medicine
DX: R91.8 Other nonspecific abnormal finding of lung field (principal); Z87.891 Personal history of nicotine dependence

== ENCOUNTER → 2018-06-30 | Outpatient (CLI) | payer BC ==
--- NOTE | 2018-06-30 13:47 | BD ---
EXAMINATION TYPE: Axial Bone Density DATE OF EXAM: 06/30/2018 COMPARISON: DEXA bone scan September 18, 2015 CLINICAL HISTORY: Postmenopausal female Height: 63.5 Weight: 187.7 FRAX RISK QUESTIONS: Alcohol (3 or more units per day): no Family History (Parent hip fracture): no Glucocorticoids (More than 3mos): no (Ex: prednisone, prednisolone, methylprednisolone, dexamethasone, and hydrocortisone). History of Fracture in Adulthood: no Secondary Osteoporosis: 1. Type 1 Diabetes: no 2. Hyperthyroidism: no 3. Menopause before 45: no 4. Malnutrition: no 5. Chronic liver disease: no Rheumatoid Arthritis: no Current Tobacco Use: yes RISK FACTORS HISTORY OF: Family History of Osteoporosis: no Active: yes Diet low in dairy products/other sources of calcium: yes Postmenopausal woman: age 53 Lost more than 2 inches in height since high school: no MEDICATIONS: inhalers, Lipitor, vit d Additional History: EXAM MEASUREMENTS: Bone mineral densitometry was performed using the myinfoQ System. Bone mineral density as measured about the Lumbar spine is: ----- L1-L4(G/cm2): 1.162 T Score Values are as follows: ----- L2: -1.0 ----- L3: -0.3 ----- L4: 0.1 ----- L1-L4: -0.1 Bone mineral density has: increased 0.3 % since study of: 09.18.2015 Bone mineral density about the R hip (g/cm2): 0.709 Bone mineral density about the L hip (g/cm2): 0.685 T Score values are as follows: -----R Neck: -2.4 -----L Neck: -2.5 -----R Total: -1.7 -----L Total: -2.0 Bone mineral density has: increased 3.9 % since study of: 09.18.2015 IMPRESSION: Osteopenia (T Score between -2.5 and -1) is now identified in both hips. Bone density slightly improv ed from prior. There is slightly increased risk of fracture and the patient may be considered for treatment. Re-Screen 2-5 years. NOTE: T-SCORE=SD OF THE YOUNG ADULT MEAN.
--- NOTE | 2018-07-01 11:34 | MM ---
Reason for exam: screening (asymptomatic). Last mammogram was performed 1 year and 1 month ago. History: Patient is postmenopausal and is nulliparous. Family history of premenopausal breast cancer in mother at age 41. Took estrogen for 1 year. Took progesterone for 1 year. Physical Findings: A clinical breast exam by your physician is recommended on an annual basis and results should be correlated with mammographic findings. MG 3D Screening Mammo W/Cad Bilateral CC and MLO view(s) were taken. Prior study comparison: May 20, 2017, right breast MG work up mamm w CAD RT. May 05, 2017, bilateral MG screening mammo w CAD. The breast tissue is heterogeneously dense. This may lower the sensitivity of mammography. Asymmetric breast tissue right subareolar position is stable. There is no discrete abnormality. ASSESSMENT: Benign, BI-RAD 2 RECOMMENDATION: Routine screening mammogram of both breasts in 1 year.
== END | disposition home or self-care (01) ==
LOC: RADMAMWWP 08:21
PROVIDERS: ATTEND Internal Medicine
DX: Z12.31 Encounter for screening mammogram for malignant neoplasm of breast (principal); M85.851 Other specified disorders of bone density and structure, right thigh; M85.852 Other specified disorders of bone density and structure, left thigh; Z80.3 Family history of malignant neoplasm of breast; Z78.0 Asymptomatic menopausal state
CPT/HCPCS: 77063; 77067; 77080

== ENCOUNTER 2018-10-15 05:08 | Observation (INO) | payer BC ==
[2018-10-15] MEDS ORDERED: ALBUTEROL NEBULIZED 2.5 MG/3 ML INHALATION STA ×2 (06:01→07:41)
[2018-10-15] MEDS ORDERED: IPRATROPIUM 0.5 MG/2.5 ML NEBU INHALATION STA (06:01)
[2018-10-15] MEDS ORDERED: predniSONE 20 MG TAB PO STA (06:01)
--- NOTE | 2018-10-15 06:06 | ED ---
SOB HPI - General Chief Complaint: Shortness of Breath Stated Complaint: GRANT Time Seen by Provider: 10/15/18 05:55 Source: patient Mode of arrival: wheelchair Limitations: no limitations - History of Present Illness Initial Comments: This patient is a 63-year-old woman who presents to be evaluated for cough, shortness of breath, chest tightness. The patient states she has history of COPD. She usually sees Dr. Malagon. She has not currently on steroids. Patient denies home oxygen use. She states that over the past 2-3 days has had upper respiratory symptoms, including cough, nasal congestion and drainage. She states that over the course of tonight she has been having increasing feeling of chest congestion and tightness. She also has become short of breath. Patient states that EMS was called and did give her nebulized breathing treatment which helped however the symptoms have recurred. MD Complaint: shortness of breath, cough -: hour(s) Severity: moderate Consistency: constant Improves With: bronchodilators Worsens With: nothing Known History Of: COPD Associated Symptoms: cough Treatments Prior to Arrival: bronchodilator - Related Data Home Medications Medication Instructions Recorded Confirmed Biotin 5 mg PO DAILY 03/08/17 08/19/17 Cholecalciferol [Vitamin D3] 2,000 tab PO DAILY 03/08/17 08/19/17 Omeprazole 40 mg PO DAILY 03/08/17 08/19/17 Albuterol Sulfate [Proair Hfa] 1 - 2 puff INHALATION RT-Q6H PRN 03/10/17 Enalapril/Hydrochlorothiazide 1 tab PO DAILY@1400 03/10/17 08/19/17 [Enalapril-Hctz 10-25 mg Tablet] Tiotropium 18 Mcg/Puff [Spiriva] 1 cap INHALATION RT-DAILY 03/10/17 08/19/17 Budesonide/Formoterol Fumarate 2 puff INHALATION RT-BID 04/26/17 08/19/17 [Symbicort 160-4.5 Mcg Inhaler] traMADol HCL [Ultram] 50 mg PO DAILY 08/19/17 08/19/17 Allergies Allergy/AdvReac Type Severity Reaction Status Date / Time Penicillins Allergy Rash/Hives Verified 10/15/18 05:33 Review of Systems ROS Statement: Those systems with pertinent positive or pertinent negative responses have been documented in the HPI. ROS Other: All systems not noted in ROS Statement are negative. Constitutional: Denies: fever, chills ENT: Reports: congestion Respiratory: Reports: cough, dyspnea, wheezes Cardiovascular: Reports: chest pain. Denies: palpitations, orthopnea, edema Gastrointestinal: Denies: abdominal pain, nausea, vomiting Genitourinary: Denies: dysuria, hematuria Musculoskeletal: Denies: back pain Skin: Denies: rash Neurological: Denies: headache, weakness Past Medical History Past Medical History: Asthma, COPD, GERD/Reflux, Hypertension Additional Past Medical History / Comment(s): supposed to have tooth pulled 07-22-17-Dr Hairston aware, just finished course of steroids, resolving cold sore on lip History of Any Multi-Drug Resistant Organisms: None Reported Past Surgical History: Bariatric Surgery, Hernia Repair, Orthopedic Surgery Additional Past Surgical History / Comment(s): cataract surg., lap band 8 yrs., arthroscopy knee sleeve gastrectomy 08-03 Past Anesthesia/Blood Transfusion Reactions: No Reported Reaction Past Psychological History: No Psychological Hx Reported Smoking Status: Current some day smoker Past Alcohol Use History: None Reported Past Drug Use History: None Reported - Past Family History Mother Family Medical History: Cancer General Exam Limitations: no limitations General appearance: alert Head exam: Present: atraumatic, normocephalic Eye exam: Present: normal appearance Neck exam: Present: normal inspection Respiratory exam: Present: wheezes, decreased breath sounds, prolonged expiratory. Absent: rales, rhonchi, stridor, accessory muscle use Cardiovascular Exam: Present: regular rate, normal rhythm, normal heart sounds. Absent: systolic murmur, diastolic murmur, rubs, gallop GI/Abdominal exam: Present: soft. Absent: distended, tenderness, guarding, rebound, rigid, mass Extremities exam: Present: normal inspection, normal capillary refill. Absent: pedal edema, calf tenderness Back exam: Present: normal inspection. Absent: CVA tenderness (R), CVA tenderness (L) Neurological exam: Present: alert Skin exam: Present: warm, dry, intact, normal color. Absent: rash Course Vital Signs 10/15/18 10/15/18 10/15/18 05:30 06:51 07:14 Temperature 98.7 F Pulse Rate 108 H 96 106 H Respiratory 20 Rate Blood Pressure 140/74 O2 Sat by Pulse 91 L Oximetry 10/15/18 07:21 Temperature Pulse Rate 104 H Respiratory 20 Rate Blood Pressure 109/69 O2 Sat by Pulse 92 L Oximetry Medical Decision Making - Lab Data Result diagrams: 10/15/18 06:59 10/15/18 06:59 Lab Results 10/15/18 10/15/18 10/15/18 Range/Units 06:59 06:59 06:59 WBC 11.6 H (3.8-10.6) k/uL RBC 4.36 (3.80-5.40) m/uL Hgb 14.4 (11.4-16.0) gm/dL Hct 42.5 (34.0-46.0) % MCV 97.5 (80.0-100.0) fL MCH 32.9 (25.0-35.0) pg MCHC 33.7 (31.0-37.0) g/dL RDW 12.6 (11.5-15.5) % Plt Count 258 (150-450) k/uL Neutrophils % 83 % Lymphocytes % 7 % Monocytes % 7 % Eosinophils % 2 % Basophils % 0 % Neutrophils # 9.6 H (1.3-7.7) k/uL Lymphocytes # 0.8 L (1.0-4.8) k/uL Monocytes # 0.8 (0-1.0) k/uL Eosinophils # 0.2 (0-0.7) k/uL Basophils # 0.0 (0-0.2) k/uL PT (9.0-12.0) sec INR (<1.2) APTT (22.0-30.0) sec D-Dimer (<0.60) mg/L FEU Sodium 139 (137-145) mmol/L Potassium 4.3 (3.5-5.1) mmol/L Chloride 109 H (98-107) mmol/L Carbon Dioxide 23 (22-30) mmol/L Anion Gap 7 mmol/L BUN 16 (7-17) mg/dL Creatinine 0.86 (0.52-1.04) mg/dL Est GFR (CKD-EPI)AfAm 83 (>60 ml/min/1.73 sqM) Est GFR (CKD-EPI)NonAf 72 (>60 ml/min/1.73 sqM) Glucose 115 H (74-99) mg/dL Calcium 9.5 (8.4-10.2) mg/dL Total Bilirubin 0.5 (0.2-1.3) mg/dL AST 27 (14-36) U/L ALT 25 (9-52) U/L Alkaline Phosphatase 81 (38-126) U/L Total Creatine Kinase 225 H (30-135) U/L NT-Pro-B Natriuret Pep pg/mL Total Protein 7.1 (6.3-8.2) g/dL Albumin 4.0 (3.5-5.0) g/dL 10/15/18 10/15/18 Range/Units 06:59 06:59 WBC (3.8-10.6) k/uL RBC (3.80-5.40) m/uL Hgb (11.4-16.0) gm/dL Hct (34.0-46.0) % MCV (80.0-100.0) fL MCH (25.0-35.0) pg MCHC (31.0-37.0) g/dL RDW (11.5-15.5) % Plt Count (150-450) k/uL Neutrophils % % Lymphocytes % % Monocytes % % Eosinophils % % Basophils % % Neutrophils # (1.3-7.7) k/uL Lymphocytes # (1.0-4.8) k/uL Monocytes # (0-1.0) k/uL Eosinophils # (0-0.7) k/uL Basophils # (0-0.2) k/uL PT 10.1 (9.0-12.0) sec INR 0.9 (<1.2) APTT 23.4 (22.0-30.0) sec D-Dimer 0.54 (<0.60) mg/L FEU Sodium (137-145) mmol/L Potassium (3.5-5.1) mmol/L Chloride (98-107) mmol/L Carbon Dioxide (22-30) mmol/L Anion Gap mmol/L BUN (7-17) mg/dL Creatinine (0.52-1.04) mg/dL Est GFR (CKD-EPI)AfAm (>60 ml/min/1.73 sqM) Est GFR (CKD-EPI)NonAf (>60 ml/min/1.73 sqM) Glucose (74-99) mg/dL Calcium (8.4-10.2) mg/dL Total Bilirubin (0.2-1.3) mg/dL AST (14-36) U/L ALT (9-52) U/L Alkaline Phosphatase (38-126) U/L Total Creatine Kinase (30-135) U/L NT-Pro-B Natriuret Pep 55 pg/mL Total Protein (6.3-8.2) g/dL Albumin (3.5-5.0) g/dL - EKG Data -: EKG Interpreted by Tx EKG shows normal: sinus rhythm, axis (Normal), intervals (Normal), QRS complexes (Normal), ST-T waves (Normal) Rate: normal (Rate 94 bpm) Interpretation: normal EKG Disposition Clinical Impression: COPD exacerbation Disposition: ADMITTED IP TO THIS HOSP Condition: Fair Referrals: Richar Sanchez MD [Primary Care Provider] - 1-2 days
[2018-10-15] MEDS ORDERED: IBUPROFEN 400 MG TAB PO STA (06:36)
--- NOTE | 2018-10-15 06:39 | XR ---
EXAM: XR Chest, 2 Views CLINICAL HISTORY: Difficulty breathing. TECHNIQUE: Frontal and lateral views of the chest. COMPARISON: CXR dated 03/10/2017. FINDINGS: Lungs: Stable appearance of the lungs compared to prior CXR. No focal consolidation. No evidence of pulmonary edema. Pleural space: No pleural effusion. No pneumothorax. Heart: Unremarkable. No cardiomegaly. Mediastinum: Unremarkable. Bones/joints: Osseous structures appear intact. IMPRESSION: Stable CXR compared to 03/10/2017. No radiographic evidence of acute cardiopulmonary process.
[2018-10-15 07:12] LABS: Basophils % (A) 0 %; Eosinophils # (A) 0.2 k/uL (0-0.7); Eosinophils % (A) 2 %; HCT 42.5 % (34.0-46.0); HGB 14.4 gm/dL (11.4-16.0); Lymphocytes # (A) 0.8 k/uL (1.0-4.8); Lymphocytes % (A) 7 %; MCH 32.9 pg (25.0-35.0); MCHC 33.7 g/dL (31.0-37.0); MCV 97.5 fL (80.0-100.0); Mean Platelet Volume 6.6; Monocytes # (A) 0.8 k/uL (0-1.0); Monocytes % (A) 7 %; Neutrophils # (A) 9.6 k/uL (1.3-7.7); Neutrophils % (A) 83 %; Platelet Count 258 k/uL (150-450); RBC 4.36 m/uL (3.80-5.40); RDW 12.6 % (11.5-15.5); WBC 11.6 k/uL (3.8-10.6)
[2018-10-15 07:25] LABS: Calcium 9.5 mg/dL (8.4-10.2); Potassium 4.3 mmol/L (3.5-5.1); Total Bilirubin 0.5 mg/dL (0.2-1.3); Total Protein 7.1 g/dL (6.3-8.2)
[2018-10-15 07:28] LABS: D-Dimer 0.54 mg/L FEU (<0.60); INR 0.9 (<1.2); Partial Thromboplastin Time 23.4 sec (22.0-30.0); Prothrombin Time 10.1 sec (9.0-12.0)
[2018-10-15 07:42] LABS: Creatine Kinase 225 U/L (30-135)
[2018-10-15] MEDS ORDERED: ALBUTEROL NEBULIZED 2.5 MG/3 ML INHALATION PRN (07:46)
[2018-10-15 07:54] LABS: Creatine Kinase MB 2.7 ng/mL (0.0-2.4); Troponin I <0.012 ng/mL (0.000-0.034)
[2018-10-15] MEDS ORDERED: NON-FORMULARY DRUG (Tiotropium 18 Mcg/Puff 1 CAP) INHALATION SCH (08:00)
[2018-10-15] MEDS: SYMBICORT 160-4.5 MCG INHALER INHALATION SCH ×2 (08:18→20:37)
[2018-10-15] MEDS: IPRATROPIUM-ALBUTEROL 3 ML NEB INHALATION SCH ×4 (08:22→20:37)
[2018-10-15] MEDS ORDERED: NON-FORMULARY DRUG (Biotin [Biotin] 5 MG) PO SCH (09:00)
[2018-10-15] MEDS: traMADol 50 MG TAB PO SCH (09:44)
[2018-10-15] MEDS: CHOLECALCIFEROL 1,000 UNIT TAB PO SCH (09:46)
[2018-10-15] MEDS: PANTOPRAZOLE 40 MG TABLET PO SCH (09:46)
[2018-10-15] MEDS: methylPREDNISolone SOD SUCCI 125 MG/2 ML VIAL IV SCH ×3 (11:29→23:34)
[2018-10-15 11:57] LABS: Glucose,Whole Blood 217 mg/dL (75-99)
[2018-10-15] MEDS: INSULIN ASPART 100 UNIT/ML 1 ML 10 ML VIAL SQ SCH ×3 (12:16→21:43)
[2018-10-15] MEDS: AZITHROMYCIN 500 MG TAB PO SCH (12:16)
--- NOTE | 2018-10-15 12:46 | HP ---
HISTORY AND PHYSICAL CHIEF COMPLAINT: Shortness of breath. HISTORY OF PRESENT ILLNESS: 63-year-old female was admitted to the hospital after presenting to the emergency room with complaints of shortness of breath. 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 During the night, she got short of breath with minimal activity. EMS was called. The EMS wanted to take her to the hospital, however, she declined that They gave her an updraft. She felt better. The patient got home, tried to rest. However, with activity, she was feeling significant short of breath and wheezing, so she is brought to the emergency room. The patient has had a cold for the past 2 days. She is a continuous smoker. She was noted to have some improvement with treatment, however, the ER physician did not feel comfortable sending her home and, in fact, the patient did not feel comfortable going home with her respiratory status. In view of this, she was admitted to the hospital. The patient is admitted as an observation status. At present, she is feeling somewhat better. She has denies any chest pain. Has cough with some mucopurulent sputum. Denies any hemoptysis. She has been previously screened with a low-dose lung CT back in April. PAST MEDICAL HISTORY: 1. Essential hypertension, controlled. 2. Chronic obstructive pulmonary disease. 3. Gastroesophageal reflux. PAST SURGICAL HISTORY: Significant for obesity and subsequently gastric sleeve surgery. Also, previous appendectomy, left knee arthroscopy. Bilateral cataract surgery. SOCIAL HISTORY: Patient is , lives with spouse. She works at a [employer]. PERSONAL HISTORY: She is a smoker at least a pack per day for the past over 37 years. Alcohol - occasional. Vaccinations - annual flu shot. ALLERGIES: PENICILLIN which causes a rash. MEDICATIONS: Medications at present include Spiriva 80 mcg daily 1 cap inhalation, Tramadol p.r.n. 50 mg, vitamin D3 5000 units daily, ProAir p.r.n., she uses Symbicort 2 puffs b.i.d., ibuprofen p.r.n., atorvastatin 20 mg daily is in mL, lisinopril 20 mg daily. FAMILY MEDICAL HISTORY: Father at age of 79. He had history of aortic aneurysm and COPD. Mother at the age of 60. She had a history of carcinoma of the breast. No siblings or children. REVIEW OF SYSTEMS: NEURO: Denies any headaches, dizziness, double vision or blurred vision. No symptoms of TIA, syncope or seizures. PSYCH: No anxiety or depression. CARDIAC: Denies chest pain, angina, palpitations. RESPIRATORY: Present complaint shortness of breath, cough. No hemoptysis. GI: No nausea, vomiting, abdominal pain, diarrhea, constipation, hematochezia, melena. : No symptoms of dysuria, hematuria, urgency, frequency. EXTREMITIES: Denies pain, edema. CONSTITUTIONAL: No fever or chills. HEMATOLOGICAL: No anemia or bleeding disorder. ENDOCRINE: No history of diabetes mellitus or hypothyroidism. SKIN: No rash. PHYSICAL EXAMINATION: Pleasant female. present no distress. Vital signs reveal in the emergency room, temperature 98.7, pulse 108, respirations 20, blood pressure 140/74, pulse ox 91% on room air. At the time of my evaluation, patient's temperature 98.3, pulse 103, respirations 20, pulse ox of of 94% on room air with blood pressure 147/76. HEENT: Normocephalic. NECK: Supple. Pupils reactive. Nostrils clear. Oral cavity is moist. Pharynx clear. Ears reveal no drainage. Neck reveals no JVD, carotid bruits or thyromegaly. CHEST: Clear to auscultation with generalized decreased air flow. No wheezing at present appreciated. Recently received treatment. The patient does have increased percussion noted bilaterally and the chest is somewhat barrel chested. ABDOMEN: Soft. No palpable masses. Bowel sounds normal. No organomegaly. No abdominal bruits. EXTREMITIES: Reveal no edema. Good pulses both upper extremities. Mild decreased pedal pulses. Neurologically awake, alert, oriented x3 with well-coordinated movements. LABORATORY ASSESSMENT: Chest x-ray which reveals no radiographic evidence of any acute cardiopulmonary process. EKG reveals normal sinus rhythm, 94, possible left atrial enlargement, otherwise normal. The laboratory assessment reveals white count 11.6 with a left shift. INR is normal. Electrolytes normal. BUN, creatinine normal. Glucose random 115. CPK 225. Troponin less than 0.01-0 9. Influenza A and B negative. ASSESSMENT: 1. Acute exacerbation of chronic obstructive pulmonary disease. 2. Upper respiratory infection, probably viral. 3. History of essential hypertension. 4. History of obesity with status post gastric sleeve. 5. Tobacco dependency. PLAN: The patient is admitted to the hospital, given IV steroids, updrafts, oxygen as needed, empiric treatment with Zithromax. 500 mg daily for 3 days. The patient has been, again, counseled regarding importance of needing to quit smoking. Prognosis remains guarded. MMODL / IJN: [id number] /
[2018-10-15] MEDS: IBUPROFEN 800 MG TAB PO PRN ×2 (13:24→23:36)
[2018-10-15] MEDS: LISINOPRIL 20 MG TAB PO SCH ×2 (15:22→15:26)
[2018-10-15] MEDS: HYDROCHLOROTHIAZIDE 25 MG TAB PO SCH ×2 (15:22→15:25)
[2018-10-15] MEDS: NICOTINE 21MG/24HR PATCH TRANSDERM SCH (16:02)
[2018-10-15] MEDS: ATORVASTATIN 20 MG TAB PO SCH (16:02)
[2018-10-15 16:48] LABS: Glucose,Whole Blood 170 mg/dL (75-99)
[2018-10-15 19:38] LABS: Hemoglobin A1C 5.7 % (4.0-6.0)
[2018-10-15 20:42] LABS: Glucose,Whole Blood 226 mg/dL (75-99)
[2018-10-16] MEDS: methylPREDNISolone SOD SUCCI 125 MG/2 ML VIAL IV SCH ×2 (05:47→12:44)
[2018-10-16 07:14] VITALS: BP 123/71; TEMP 97.9
[2018-10-16 07:18] LABS: Glucose,Whole Blood 135 mg/dL (75-99)
[2018-10-16] MEDS: SYMBICORT 160-4.5 MCG INHALER INHALATION SCH (07:47)
[2018-10-16] MEDS: IPRATROPIUM-ALBUTEROL 3 ML NEB INHALATION SCH ×2 (07:47→11:53)
[2018-10-16] MEDS: AZITHROMYCIN 500 MG TAB PO SCH (08:18)
[2018-10-16] MEDS: PANTOPRAZOLE 40 MG TABLET PO SCH (08:18)
[2018-10-16] MEDS: CHOLECALCIFEROL 1,000 UNIT TAB PO SCH (08:18)
[2018-10-16] MEDS: NICOTINE 21MG/24HR PATCH TRANSDERM SCH ×2 (08:18→12:40)
[2018-10-16] MEDS: ATORVASTATIN 20 MG TAB PO SCH (08:18)
[2018-10-16] MEDS: INSULIN ASPART 100 UNIT/ML 1 ML 10 ML VIAL SQ SCH ×2 (08:19→12:45)
[2018-10-16] MEDS: traMADol 50 MG TAB PO SCH (08:23)
[2018-10-16] MEDS ORDERED: predniSONE 20 MG TAB PO SCH (09:00)
[2018-10-16 10:03] VITALS: RESP 18
[2018-10-16 11:58] LABS: Glucose,Whole Blood 138 mg/dL (75-99)
[2018-10-16 12:15] VITALS: PULSE 100
--- NOTE | 2018-10-16 12:19 | P.DS ---
Providers Date of admission: 10/15/18 07:46 Expected date of discharge: 10/16/18 Attending physician: Richar Sanchez Primary care physician: Richar Sanchez [place] Course: This 63-year-old female was admitted to the hospital because of shortness of breath. Patient has had a recent head cold with associated cough and congestion. He has some sputum production. No hemoptysis. Patient was wheezing at the time of ER visit. Conditions generally improved with in radiation therapy with albuterol and Atrovent. Also placed on steroids IV and arbitrary treatment with Zithromax. Patient's condition is improved to the point that she could be discharged home with continued home treatment.. Patient will continue with steroids, albuterol updrafts. Spirava Zithromax . Recommended continue off work for the next week. Strongly recommended to quit smoking My final diagnosis 1. Acute exacerbation COPD 2. Upper respiratory tract infection/tracheobronchitis 3. Tobacco dependency 4. Obesity Patient Condition at Discharge: Fair Plan - Discharge Summary New Discharge Prescriptions: New Albuterol Nebulized [Ventolin Nebulized] 2.5 mg INHALATION Q6H #120 nebu Azithromycin [Zithromax] 500 mg PO DAILY #3 tab methylPREDNISolone Dose Pack [Medrol Dose Pack] 4 mg PO DIRECTED #21 package Continue Cholecalciferol [Vitamin D3] 5,000 units PO DAILY Tiotropium 18 Mcg/Puff [Spiriva] 1 cap INHALATION RT-DAILY Albuterol Sulfate [Proair Hfa] 1 - 2 puff INHALATION RT-Q6H PRN PRN Reason: Shortness Of Breath Budesonide/Formoterol Fumarate [Symbicort 160-4.5 Mcg Inhaler] 2 puff INHALATION RT-BID Ibuprofen [Advil] 200 mg PO Q8HR PRN PRN Reason: Pain Atorvastatin [Lipitor] 20 mg PO DAILY Discontinued traMADol HCL [Ultram] 50 mg PO DAILY PRN PRN Reason: Pain Discharge Medication List Cholecalciferol [Vitamin D3] 5,000 units PO DAILY 03/08/17 [History] Albuterol Sulfate [Proair Hfa] 1 - 2 puff INHALATION RT-Q6H PRN 03/10/17 [ History] Tiotropium 18 Mcg/Puff [Spiriva] 1 cap INHALATION RT-DAILY 03/10/17 [History] Budesonide/Formoterol Fumarate [Symbicort 160-4.5 Mcg Inhaler] 2 puff INHALATION RT-BID 04/26/17 [History] Atorvastatin [Lipitor] 20 mg PO DAILY 10/15/18 [History] Ibuprofen [Advil] 200 mg PO Q8HR PRN 10/15/18 [History] Albuterol Nebulized [Ventolin Nebulized] 2.5 mg INHALATION Q6H #120 nebu [Rx] Azithromycin [Zithromax] 500 mg PO DAILY #3 tab 10/16/18 [Rx] methylPREDNISolone Dose Pack [Medrol Dose Pack] 4 mg PO DIRECTED #21 package 10/16/18 [Rx] Follow up Appointment(s)/Referral(s): Richar Sanchez MD [Primary Care Provider] - 1-2 days Patient Instructions/Handouts: Emphysema (DC) Discharge Disposition: HOME SELF-CARE
== END 2018-10-16 12:52 | disposition home or self-care (01) ==
LOC: EC 05:08 → 4MS4W 07:46
PROVIDERS: ADMIT Internal Medicine; ATTEND Internal Medicine
DX: J44.1 Chronic obstructive pulmonary disease with (acute) exacerbation (principal); I10 Essential (primary) hypertension; J40 Bronchitis, not specified as acute or chronic; K21.9 Gastro-esophageal reflux disease without esophagitis; E66.9 Obesity, unspecified; Z68.29 Body mass index [BMI] 29.0-29.9, adult; Z98.42 Cataract extraction status, left eye; Z98.41 Cataract extraction status, right eye; F17.210 Nicotine dependence, cigarettes, uncomplicated; Z98.84 Bariatric surgery status; Z90.49 Acquired absence of other specified parts of digestive tract; Z79.51 Long term (current) use of inhaled steroids; Z88.0 Allergy status to penicillin; Z79.899 Other long term (current) drug therapy; Z82.49 Family history of ischemic heart disease and other diseases of the circulatory system; Z82.5 Family history of asthma and other chronic lower respiratory diseases; Z80.3 Family history of malignant neoplasm of breast
CPT/HCPCS: 96376 ×2; 96374; 99285; 36415; 94640 ×4; 94760 ×2; 93005; 85379; 83880; 80053; 82550; 82553; 84484; 85025; 85610; 85730; 87502; 83036; 71046; G0378 ×2; S4990 ×2; J2930 ×2; J7512

== ENCOUNTER → 2019-08-17 | Outpatient (CLI) | payer BC ==
--- NOTE | 2019-08-18 14:25 | MM ---
Reason for exam: screening (asymptomatic). Last mammogram was performed 1 year and 2 months ago. History: Patient is postmenopausal and is nulliparous. Family history of premenopausal breast cancer in mother at age 41. Took estrogen for 1 year. Took progesterone for 1 year. Physical Findings: A clinical breast exam by your physician is recommended on an annual basis and results should be correlated with mammographic findings. MG 3D Screening Mammo W/Cad Bilateral CC and MLO view(s) were taken. Prior study comparison: June 30, 2018, bilateral MG 3d screening mammo w/cad. May 20, 2017, right breast MG work up mamm w CAD RT. The breast tissue is heterogeneously dense. This may lower the sensitivity of mammography. No suspicious abnormality. No significant changes when compared with prior studies. ASSESSMENT: Negative, BI-RAD 1 RECOMMENDATION: Routine screening mammogram of both breasts in 1 year.
== END | disposition home or self-care (01) ==
LOC: RADMAMWWP 08:57
PROVIDERS: ATTEND Internal Medicine
DX: Z12.31 Encounter for screening mammogram for malignant neoplasm of breast (principal); Z80.3 Family history of malignant neoplasm of breast
CPT/HCPCS: 77063; 77067

== ENCOUNTER → 2019-12-28 | Outpatient (CLI) | payer BC ==
--- NOTE | 2019-12-28 10:15 | CTL ---
EXAMINATION TYPE: CT Low Dose Lung DATE OF EXAM ORDERED: 12/28/2019 HISTORY: Long-term tobacco use. Lung cancer screening CT DLP: 108.[address] CTDI: 3.2 mGy Automated exposure control for dose reduction was used. SCREENING VISIT: Second COMPARISON: Prior low-dose lung screening CT April 28, 2018 and older chest CTs. TECHNIQUE: Low dose computed tomography scan was performed through the chest at 1 mm thick sections a nd reconstructed images in the coronal plane at [address] DIAGNOSTIC QUALITY: Satisfactory FINDINGS: LUNG NODULES: None. Interval resolution of the slightly nodular scarring right infrahilar level centr ally anteriorly near right heart border. LUNGS: COPD: Severity: Mild Fibrosis: Severity: Mild/moderate bibasilar linear scarring and/or atelectasis Lymph nodes: None Other findings: None BILATERAL PLEURAL SPACE: Effusion: None Calcification: None Thickening: None Pneumothorax: None HEART: Heart Size: Normal Coronary calcification: Minimal Pericardial effusion: None OTHER FINDINGS: Upper abdomen: Surgical changes from gastric sleeve with small hiatal hernia redemonstrated. Bony thorax: S-shaped scoliosis with moderate multilevel spurring and disc space narrowing greatest l ower thoracic levels. Supraclavicular region: None. Other: None. IMPRESSION: No suspicious new nodules. FOLLOW UP CT CHEST RECOMMENDATION: Annual dose lung screening CT CT LUNG RAD: Lung-Rad 1 Negative
== END | disposition home or self-care (01) ==
LOC: RADCTMAIN 08:40
PROVIDERS: ATTEND Internal Medicine
DX: Z12.2 Encounter for screening for malignant neoplasm of respiratory organs (principal); F17.210 Nicotine dependence, cigarettes, uncomplicated

== ENCOUNTER → 2020-06-03 | Outpatient (CLI) | payer BC ==
[~2020-06-03] MED LIST changes: -ACETAMINOPHEN TAB 500 MG TAB PO ONE; +ATROPINE SULFATE 0.1 MG/ML 10ML SYRINGE ONE; -DEXAMETHASONE SOD PHOSPHATE 10 MG/ML 1 ML VIAL IV ONE; +DOBUTamine DRIP for NUC MED 500 MG in DEXTROSE/WATER 1 250ML.BAG IV ONE; -ENOXAPARIN 40 MG/0.4 ML SYRINGE SQ ONE; -HYDROmorphone 0.5 MG/0.5 ML SYRINGE IVP PRN; -LIDOCAINE 1% 20 ML VIAL (10MG/ML) FOR IV START INTRADERMA PRN; +METOPROLOL TARTRATE 5 MG/5 ML VIAL IVP ONE; -MIDAZOLAM 2 MG/2 ML VIAL IV PRN; -ONDANSETRON 4 MG/2 ML VIAL IVP ONE; -SCOPOLAMINE 1.5MG/72HR PATCH TRANSDERM ONE; -ceFAZolin 2 GM in SODIUM CHLORIDE 0.9% 100 ML IVPB ONE
--- NOTE | 2020-06-03 12:10 | EST ---
EXERCISE STRESS DATE OF SERVICE: June 03, 2020 AGE: 65 SEX: F HT: 64" WT: 200 lbs PROTOCOL: Dobutamine stress echo STAGE: 2 DURATION OF EXERCISE: HEART RATE REST: 72 BLOOD PRESSURE REST: 125/71 MAXIMUM HEART RATE ACHIEVED: 150 MAXIMUM BLOOD PRESSURE: 130/69 85% MPHR: 131 100% MPHR: 154 METS: INDICATIONS: Dyspnea. STRESS DATA: Heart rate is 72, pressure is 125/71 mmHg. Baseline EKG showed sinus mechanism. Dobutamine infusion at a dose of 10 mcg/kg per minute was initiated and increased to 20 mcg/kg per minute. Then we gave the patient 0.5 mg of atropine. With that, the patient achieved a max heart rate of 150 which is about 97% of maximum predicted heart rate with maximum blood pressure of 130/69 mmHg. Clinically, the patient did not have any symptoms and the EKG did not show any significant ST or T-wave abnormalities concerning for ischemia. Analysis and echocardiogram images from parasternal long axis view, parasternal short axis view, apical 4 chamber and apical 2 chamber obtained at the baseline images, at low dose dobutamine infusion, at the peak of the heart rate as well as on recovery and the echocardiogram images showed good augmentation in the left ventricular systolic function without any evidence of wall motion abnormalities concerning for ischemia. CONCLUSION: 1. Normal EKG in response to dobutamine. 2. Normal echocardiogram in response to dobutamine. 3. Normal dobutamine stress echocardiogram. MMODL / IJN: [id number] /
== END | disposition home or self-care (01) ==
LOC: RADNMMAIN 09:50
PROVIDERS: ATTEND Internal Medicine
DX: R06.09 Other forms of dyspnea (principal); R00.2 Palpitations
CPT/HCPCS: 93351; J1250

== ENCOUNTER → 2020-07-04 | Outpatient (CLI) | payer BC ==
--- NOTE | 2020-07-05 12:30 | CT ---
EXAMINATION TYPE: CT lumbar spine wo con DATE OF EXAM: 07/04/2020 COMPARISON: Plain film dated 06/14/2020 from outside institution HISTORY: low back pain x 2 yrs. radiates down both legs CT DLP: 1537 mGycm Automated exposure control for dose reduction was used. An unenhanced CT of the lumbar spine was performed. Bone and soft tissue window settings are submitt ed as well as coronal and sagittal reconstructions. FINDINGS: There is an anterolisthesis grade 1 L4-5, retrolisthesis grade 1 L2-3, L1 to and there is an S-shaped spinal curvature. Vacuum phenomenon present at L5-S1, L4-5, L2-3 and L1-22, loss of disc height pres ent at intervertebral levels. There is multilevel spondylosis. Postop changes are noted at the gastroesophageal junction level. Some thickening of the distal esopha jem may be postoperative. Right adrenal low dense lesion measures 15 mm and likely represents adenoma , smaller 1 cm lesion also present in the right adrenal gland likely represents adenoma. L1-L2: Posterior extension endplate disc complex causes anterior mass effect on the thecal sac. No de finite spinal stenosis. Left-sided foraminal encroachment is present. L2-L3: Posterior broad-based disc bulge causes anterior mass effect on the thecal sac, suspect modera te spinal stenosis, circumferential extension endplate discomfort results in foraminal encroachment g reater on the left which is contributed by the listhesis. There is facet arthropathy change. Suspect moderate spinal stenosis. L3-L4: Posterior broad-based disc bulge is present, there are hypertrophic changes of the ligamentum flavum with some associated calcification, moderate to severe spinal stenosis is present. Differentia l extension endplate disc complex encroaches somewhat on the foramen greater on the left. L4-L5: Listhesis contributes cause bilateral foraminal encroachment. No evident disc herniation. Ther e is moderate to severe spinal stenosis however. L5-S1: Posterior extension endplate disc complex causes some mild anterior mass effect on the thecal sac. There is facet arthropathy change present. Circumferential extension of endplate disc complex re sults in bilateral foraminal encroachment. IMPRESSION: Degenerative disc disease, spinal stenosis, multilevel foraminal encroachment. Facet arth ropathy. Spinal curvature. Postop changes. Additional findings above.
== END | disposition home or self-care (01) ==
LOC: RADCTMAIN 08:42
PROVIDERS: ATTEND Orthopaedic Surgery
DX: M51.36 Other intervertebral disc degeneration, lumbar region (principal); M48.061 Spinal stenosis, lumbar region without neurogenic claudication; M47.816 Spondylosis without myelopathy or radiculopathy, lumbar region; Z98.890 Other specified postprocedural states; M43.8X6 Other specified deforming dorsopathies, lumbar region; M51.26 Other intervertebral disc displacement, lumbar region
CPT/HCPCS: 72131

== ENCOUNTER → 2021-02-14 | Outpatient (CLI) | payer BC ==
--- NOTE | 2021-02-17 10:42 | MM ---
Reason for exam: screening (asymptomatic). Last mammogram was performed 1 year and 6 months ago. History: Patient is postmenopausal and is nulliparous. Family history of premenopausal breast cancer in mother at age 41. Took estrogen for 1 year. Took progesterone for 1 year. Physical Findings: A clinical breast exam by your physician is recommended on an annual basis and results should be correlated with mammographic findings. MG 3D Screening Mammo W/Cad Bilateral CC and MLO view(s) were taken. Prior study comparison: August 17, 2019, bilateral MG 3d screening mammo w/cad. June 30, 2018, bilateral MG 3d screening mammo w/cad. There are scattered fibroglandular densities. Benign appearing calcifications in the right breast. No significant changes when compared with prior studies. ASSESSMENT: Benign, BI-RAD 2 RECOMMENDATION: Routine screening mammogram of both breasts in 1 year.
== END | disposition home or self-care (01) ==
LOC: RADMAMWWP 09:31
PROVIDERS: ATTEND Internal Medicine
DX: Z12.31 Encounter for screening mammogram for malignant neoplasm of breast (principal); Z80.3 Family history of malignant neoplasm of breast; Z78.0 Asymptomatic menopausal state
CPT/HCPCS: 77063; 77067

== ENCOUNTER → 2021-03-04 | Outpatient (CLI) | payer BC ==
--- NOTE | 2021-03-04 08:57 | CTL ---
EXAMINATION TYPE: CT Low Dose Lung DATE OF EXAM ORDERED: 03/04/2021 HISTORY: Prior tobacco use. Lung cancer screening CT DLP: [address] CTDI: 2.68 mGy Automated exposure control for dose reduction was used. SCREENING VISIT: Second after baseline COMPARISON: Prior studies 2019 and 2018 TECHNIQUE: Low dose computed tomography scan was performed through the chest at 1 mm thick sections a nd reconstructed images in the coronal plane at [address] DIAGNOSTIC QUALITY: Limited, but interpretable Due to enlarged body habitus. FINDINGS: LUNG NODULES: None. No new nodules evident. LUNGS: COPD: Severity: Mild Fibrosis: Severity: Mild to moderate bibasilar linear scarring Lymph nodes: No greater than 1 cm Other findings: None RIGHT PLEURAL SPACE: Effusion: None Calcification: None Thickening: None Pneumothorax: None LEFT PLEURAL SPACE: Effusion: None Calcification: None Thickening: None Pneumothorax: None HEART: Heart Size: Normal Coronary calcification: None Pericardial effusion: None OTHER FINDINGS: Upper abdomen: Surgical changes from gastric sleeve redemonstrated. Stable small hiatal hernia. Bony thorax: Underlying scoliotic curvature. Multilevel spurring. Supraclavicular region: None. Other: None. IMPRESSION: Suboptimal study, no new nodules. CT LUNG RAD AND CT CHEST RECOMMENDATION: Lung-Rad 1 Negative: Continue annual screening with LDCT in 12 months. S Modifier (other clinically significant findings): None
== END | disposition home or self-care (01) ==
LOC: RADCTMAIN 08:07
PROVIDERS: ATTEND Internal Medicine
DX: Z12.2 Encounter for screening for malignant neoplasm of respiratory organs (principal); Z87.891 Personal history of nicotine dependence
CPT/HCPCS: 71271

== ENCOUNTER 2021-08-13 07:56 | Day surgery (SDC) | payer BC ==
[2021-08-07 11:55] VITALS: BMI 36.8
[~2021-08-13 07:56] MED LIST changes: -ATROPINE SULFATE 0.1 MG/ML 10ML SYRINGE ONE; -DOBUTamine DRIP for NUC MED 500 MG in DEXTROSE/WATER 1 250ML.BAG IV ONE; +LACTATED RINGERS 1,000 ML IV SCH; -METOPROLOL TARTRATE 5 MG/5 ML VIAL IVP ONE
[2021-08-13] MEDS ORDERED: LACTATED RINGERS 1,000 ML IV ONE (08:15)
[2021-08-13 08:26] VITALS: TEMP 97.8
[2021-08-13] MEDS ORDERED: GLYCOPYRROLATE 0.2 MG/ML 2 ML VIAL ONE (09:47)
[2021-08-13] MEDS ORDERED: PROPOFOL 10 MG/ML 20 ML VIAL IV ONE (09:47)
--- NOTE | 2021-08-13 10:08 | P.PCN ---
Date of Procedure: 08/13/21 Procedure(s) Performed: BRIEF HISTORY: Patient is a 66-year-old pleasant white female scheduled for an elective colonoscopy as a part of screening for colorectal neoplasia. PROCEDURE PERFORMED: Colonoscopy. PREOPERATIVE DIAGNOSIS: Screening for colon cancer. IV sedation per Anesthesia. PROCEDURE: After informed consent was obtained, the patient, was brought into the endoscopy unit. IV sedation was administered by Anesthesia under continuous monitoring. Digital rectal examination was normal. Initially the Olympus CF-160 flexible video colonoscope was then inserted in the rectum, gradually advanced into the cecum without any difficulty. Careful examination was performed as the scope was gradually being withdrawn. Ileocecal valve and the appendiceal orifice were visualized and appeared normal. Prep was excellent. Mucosa of the cecum, ascending colon, transverse colon, descending colon, sigmoid colon, and rectum appeared normal. Retroflexion was performed in the rectum and no lesions were seen. The patient tolerated the procedure well. IMPRESSION: Normal-appearing colon from rectum to cecum with no evidence of colorectal neoplasia. RECOMMENDATIONS: Findings of this examination were discussed with the patient as well as a family. She was advised to have a repeat screening colonoscopy in 10 years..
[2021-08-13 10:16] VITALS: RESP 12
[2021-08-13 10:57] VITALS: BP 142/70; PULSE 98
== END 2021-08-13 10:40 | disposition home or self-care (01) ==
LOC: ORWHC2ENDO 07:56
PROVIDERS: ATTEND Internal Medicine Gastroenterology
DX: Z12.11 Encounter for screening for malignant neoplasm of colon (principal)
CPT/HCPCS: 45378; J2704

== ENCOUNTER → 2022-01-29 | Outpatient (CLI) | payer BC ==
--- NOTE | 2022-01-30 06:02 | BD ---
EXAMINATION TYPE: Axial Bone Density DATE OF EXAM: 01/29/2022 COMPARISON: 2018 CLINICAL HISTORY: 66 years year old Female. ICD-10 CODE: M85.80 OSTEOPENIA Height: 5 FT 2 3/4 IN Weight: 222 FRAX RISK QUESTIONS: Alcohol (3 or more units per day): NO Family History (Parent hip fracture): NO Glucocorticoids (More than 3mos): NO (Ex: prednisone, prednisolone, methylprednisolone, dexamethasone, and hydrocortisone). History of Fracture in Adulthood: YES Secondary Osteoporosis: 1. Type 1 Diabetes: NO 2. Hyperthyroidism: NO 3. Menopause before 45: NO 4. Malnutrition: NO 5. Chronic liver disease: NO Rheumatoid Arthritis: NO Current Tobacco Use: FORMER JUST QUIT RISK FACTORS HISTORY OF: Surgery to Spine/Hip(right/left)/Wrist (right/left): NO Family History of Osteoporosis: NO Active: NO Diet low in dairy products/other sources of calcium: NO Postmenopausal woman: YES Take estrogen and/or progesterone medications: NO Lost more than 2 inches in height since high school: YES Frequent falls: NO Poor Health: GOOD Hyperparathyroidism: NO Adrenal Insufficiency: NO MEDICATIONS: Additional Medications: TRAMADOL, SYMBICORT, SPIRIVA, ALBUTEROL, Additional History: SEVERE BACK PAIN EXAM MEASUREMENTS: Bone mineral densitometry was performed using the [employer] System. Bone mineral density as measured about the Lumbar spine is: ----- L1-L4(G/cm2): 1.107 T Score Values are as follows: ----- L1: -0.7 ----- L2: -1.0 ----- L3: -0.3 ----- L4: -0.6 ----- L1-L4: -0.6 Bone mineral density has: DECREASED -2.9 % SINCE STUDY OF 2018 Bone mineral density about the R hip (g/cm2): 0.636 Bone mineral density about the L hip (g/cm2): 0.639 T Score values are as follows: -----R Neck: -2.9 -----L Neck: -2.9 -----R Total: -1.6 -----L Total: -2.4 Bone mineral density haS DECREASED -2.3 SINCE STUDY OF 2017 FRAX: The graph provided illustrates a 26.0 % for a major osteoporotic fx and a 10.8 % for the hips p robability for fx in 10 years time. IMPRESSION: Osteoporosis (T Score less than -2.5). There is increased fracture risk and therapy is usually indicated based on age. Re-Screen 1-2 years. NOTE: T-SCORE=SD OF THE YOUNG ADULT MEAN.
== END | disposition home or self-care (01) ==
LOC: RADBDWWP 11:10
PROVIDERS: ATTEND Internal Medicine
DX: M81.0 Age-related osteoporosis without current pathological fracture (principal)
CPT/HCPCS: 77080

== ENCOUNTER → 2022-02-26 | Outpatient (CLI) | payer BC ==
--- NOTE | 2022-02-26 21:20 | CT ---
EXAMINATION TYPE: CT shoulder RT wo con DATE OF EXAM: 02/26/2022 COMPARISON: No previous CT scan is available for comparison. HISTORY: pain, limited rom CT DLP: 746.2 mGycm Automated exposure control for dose reduction was used. TECHNIQUE: Multiplanar CT scan of the right shoulder without IV contrast administration. 3-D reconstr uction images were generated on an independent workstation and reviewed. FINDINGS: Moderate to marked degenerative changes of the right acromioclavicular joint. Moderate to marked dege nerative changes of the glenohumeral articulation with osteophytosis and narrowing of the joint space . Humeral head osteophytosis is also noted. Pseudoarticulation between the inferior aspect of the acromion and the superior aspect of the humeral head with markedly reduced acromiohumeral distance which can be seen in cases of chronic rotator cuf f tear. No humeral head dislocation. Questionable chronic healed nondisplaced fracture of the right humeral diaphysis. No definite acute f racture line identified. Synovial/soft tissue calcification is seen surrounding the right shoulder geeta int. Atrophic changes of the supra and infraspinatus muscles. IMPRESSION: Degenerative changes of the right shoulder joint with signs of chronic rotator cuff tear and other ch ronic findings as detailed above. Further MRI assessment can be considered if clinically required.
== END | disposition home or self-care (01) ==
LOC: RADCTMAIN 09:15
PROVIDERS: ATTEND Orthopaedic Surgery Sports Medicine
DX: M19.011 Primary osteoarthritis, right shoulder (principal); M75.111 Incomplete rotator cuff tear or rupture of right shoulder, not specified as traumatic

== ENCOUNTER → 2022-03-13 | Outpatient (CLI) | payer BC ==
--- NOTE | 2022-03-17 17:25 | MM ---
Reason for Exam: Screening (asymptomatic). Last mammogram was performed 1 year(s) and 1 month(s) ago. Patient History: Menarche at age 11. Patient has no children. Postmenopausal. Patient used Estrogen for 1 year. Patient used Progesterone for 1 year. Mother had breast cancer, age 41. Risk Values: Minerva 5 year model risk: 3.4%. NCI Lifetime model risk: 10.7%. Film Views: Bilateral CC views were taken. Bilateral MLO views were taken. Prior Study Comparison: 06/30/2018 Bilateral Screening Mammogram, [facility]. 08/17/2019 Bilateral Screening Mammogram, [facility]. 02/14/2021 Bilateral Screening Mammogram, [facility]. Tissue Density: There are scattered fibroglandular densities. Findings: Analyzed By CAD. Unchanged focal asymmetry subareolar right breast. No significant change from prior exams. Overall Assessment: Benign, BI-RAD 2 Management: Screening Mammogram of both breasts in 1 year. A clinical breast exam by your physician is recommended on an annual basis and results should be correlated with mammographic findings. Also, the patient should continue monthly self breast exams. Electronically signed and approved by: Debo Galindo M.D. Radiologist
== END | disposition home or self-care (01) ==
LOC: RADMAMWWP 09:28
PROVIDERS: ATTEND Internal Medicine
DX: Z12.31 Encounter for screening mammogram for malignant neoplasm of breast (principal); Z78.0 Asymptomatic menopausal state; Z80.3 Family history of malignant neoplasm of breast
CPT/HCPCS: 77063; 77067

== ENCOUNTER → 2022-03-23 | Outpatient (CLI) | payer BC ==
--- NOTE | 2022-03-23 09:55 | CTL ---
EXAMINATION TYPE: CT Low Dose Lung DATE OF EXAM ORDERED: 03/23/2022 HISTORY: Tobacco use. Lung cancer screening CT DLP: 122.[address] CTDI: 3.7 mGy Automated exposure control for dose reduction was used. SCREENING VISIT: Follow-up COMPARISON: CT dated 03/04/2021 TECHNIQUE: Low dose computed tomography scan was performed through the chest at 1 mm thick sections a nd reconstructed images in multiple planes at 1 mm and [address] DIAGNOSTIC QUALITY: Satisfactory FINDINGS: LUNG NODULES: Right lung apex solid [address] image 31. This nodule is not well seen previously. Left upper lobe groundglass [address] image 50. This nodule is unchanged. Left upper lobe solid [address] image #46, not well appreciated previously. LUNGS: COPD: Severity: Mild Fibrosis: Severity: Mild Lymph nodes: No pathologically enlarged lymph nodes Other findings: Scattered bilateral subsegmental pulmonary atelectasis most evident in the right lowe r lobe, lingula and middle lobe. RIGHT PLEURAL SPACE: Effusion: None Calcification: None Thickening: None Pneumothorax: None LEFT PLEURAL SPACE: Effusion: None Calcification: None Thickening: None Pneumothorax: None HEART: Heart Size: Normal Coronary Calcification: Minimal Pericardial Effusion: None OTHER FINDINGS: Upper abdomen: Previous gastric surgery with a small sliding hiatal hernia containing a small portion of the stomach. Bony thorax: Degenerative changes of thoracic spine. Supraclavicular region: None Other: Scattered arterial atherosclerotic calcifications. IMPRESSION: Few scattered pulmonary nodules measuring up to 3 mm as described above. No suspicious chante ng lesion. Other incidental findings as described above. CT LUNG RAD AND CT CHEST RECOMMENDATION: Lung-Rad 2 Benign Appearance or Behavior: Continue annual sc reening with LDCT in 12 months. S Modifier (other clinically significant findings): As above.
== END | disposition home or self-care (01) ==
LOC: RADCTMAIN 08:28
PROVIDERS: ATTEND Internal Medicine Critical Care Medicine
DX: Z12.2 Encounter for screening for malignant neoplasm of respiratory organs (principal); R91.8 Other nonspecific abnormal finding of lung field; Z87.891 Personal history of nicotine dependence
CPT/HCPCS: 71271

== ENCOUNTER → 2023-03-10 | Outpatient (CLI) | payer BC ==
--- NOTE | 2023-03-10 15:16 | BD ---
EXAMINATION TYPE: Axial Bone Density DATE OF EXAM: 03/10/2023 CLINICAL HISTORY: 68 years old Female. ICD-10 CODE: M85.852 TH DISRD OF BONE DENSITY AND STRUC Height: 61.4 in Weight: 229 lbs FRAX RISK QUESTIONS: History of Fracture in Adulthood: rt foot age 22 RISK FACTORS HISTORY OF: Active: limited Postmenopausal woman: age 49 Take estrogen and/or progesterone medications: not now How long: took control for 1 year Lost more than 2 inches in height since high school: yes 4" MEDICATIONS: Osteoporosis Medications: yes Which medication: Fosamax How Lon year Additional Medications: vit d, cholesterol meds, water pill, inhalers, EXAM MEASUREMENTS: Bone mineral densitometry was performed using the [employer] System. Bone mineral density as measured about the Lumbar spine is: ----- L1-L4(G/cm2): 1.135 T Score Values are as follows: ----- L1: -0.8 ----- L2: -0.6 ----- L3: 0.0 ----- L4: -0.3 ----- L1-L4: -0.4 Z Score Values are as follows: ----- L1: -0.3 ----- L2: -0.1 ----- L3: 0.5 ----- L4: 0.2 ----- L1-L4: 0.1 Bone mineral density has: Increased 2.5% since study of: 01/29/2022 Bone mineral density about the R hip (g/cm2): 0.799 Bone mineral density about the L hip (g/cm2): 0.780 T Score values are as follows: -----R Neck: -4.0 -----L Neck: -2.9 -----R Total: -1.7 -----L Total: -1.8 Z Score values are as follows: -----R Neck: -3.1 -----L Neck: -2.0 -----R Total: -1.1 -----L Total: -1.2 Bone mineral density has: Increased 4.4% since study of: 01/29/2022 FRAX%s: The graph provided illustrates a 38.4% chance for a major osteoporotic fx and a 18.6% chance for the hips probability for fx in 10 years time. IMPRESSION: Osteoporosis (T Score less than -2.5). There is increased fracture risk and therapy is usually indicated based on age. Re-Screen 1-2 years. NOTE: T-SCORE=SD OF THE YOUNG ADULT MEAN.
--- NOTE | 2023-03-11 20:25 | MM ---
Reason for Exam: Screening (asymptomatic). Last screening mammogram was performed 12 month(s) ago. Patient History: Menarche at age 11. Patient has no children. Postmenopausal. Patient used Estrogen for 1 year. Patient used Progesterone for 1 year. Mother had breast cancer, age 41. Risk Values: Minerva 5 year model risk: 3.4%. NCI Lifetime model risk: 10.2%. Prior Study Comparison: 08/17/2019 Bilateral Screening Mammogram, [facility]. 02/14/2021 Bilateral Screening Mammogram, [facility]. 03/13/2022 Bilateral MG 3D screening mammo w/cad, [facility]. Tissue Density: There are scattered fibroglandular densities. Findings: Analyzed By CAD. Areas of asymmetric density are unchanged. There is no suspicious group of microcalcifications or new suspicious mass in either breast. Overall Assessment: Benign, BI-RAD 2 Management: Screening Mammogram of both breasts in 1 year. See note below in regards to patient's increased 5 year Minerva score. Patient should continue monthly self-breast exams. A clinical breast exam by your physician is recommended on an annual basis. This exam should not preclude additional follow-up of suspicious palpable abnormalities. Note on Minerva scores and lifetime risk: 1. A Minerva score greater than 3% is considered moderate risk. If this is the case, consider specialist referral to assess eligibility for a risk reducing agent. 2. If overall lifetime risk for the development of breast cancer is 20% or higher, the patient may qualify for future screening with alternating mammogram and breast MRI. Electronically signed and approved by: Debo Galindo M.D. Radiologist
== END | disposition home or self-care (01) ==
LOC: RADMAMWWP 11:49
PROVIDERS: ATTEND Internal Medicine
DX: Z12.31 Encounter for screening mammogram for malignant neoplasm of breast (principal); M81.0 Age-related osteoporosis without current pathological fracture; M85.89 Other specified disorders of bone density and structure, multiple sites; Z78.0 Asymptomatic menopausal state; Z80.3 Family history of malignant neoplasm of breast
CPT/HCPCS: 77063; 77067; 77080

== ENCOUNTER → 2023-03-31 | Outpatient (CLI) | payer BC ==
--- NOTE | 2023-03-31 13:06 | CTL ---
EXAMINATION TYPE: CT Low Dose Lung DATE OF EXAM ORDERED: 03/31/2023 COMPARISON: 03/23/2022 HISTORY: . Low Dose CT Lung Screening CT DLP: [address] CTDI: 4.2 mGy IV CONTRAST USED: None. SCREENING VISIT: Third COMPARISON: None. TECHNIQUE: Low dose computed tomography scan was performed through the chest at 1 millimeter thick se ctions and reconstructed images in the coronal plane at [address] DIAGNOSTIC QUALITY: Satisfactory FINDINGS: LUNG NODULES: Not presentLeft lung: no nodules identified.Right lung: no nodules identified. LUNGS: COPD: Severity: None Fibrosis: Severity:None Lymph nodes: None Other findings: None RIGHT PLEURAL SPACE: Effusion: None Calcification: None Thickening: None Pneumothorax: None LEFT PLEURAL SPACE: Effusion: None Calcification: None Thickening: None Pneumothorax: None HEART: Heart Size: Mildly enlarged Coronary calcification: Mild Pericardial effusion: None OTHER FINDINGS: Upper abdomen: Gastric sleeve changes noted Bony thorax: Degenerative changes Supraclavicular region: No significant abnormalityOther: No significant abnormalityI IMPRESSION: No suspicious pulmonary nodules seen. FOLLOW UP CT CHEST RECOMMENDATION: Follow-up screening in one year CT LUNG RAD: LUNG RAD CATEGORY 1 negative
== END | disposition home or self-care (01) ==
LOC: RADCTMAIN 11:56
PROVIDERS: ATTEND Internal Medicine Critical Care Medicine
DX: Z12.2 Encounter for screening for malignant neoplasm of respiratory organs (principal); Z87.891 Personal history of nicotine dependence
CPT/HCPCS: 71271

== ENCOUNTER → 2024-04-12 | Outpatient (CLI) | payer BC ==
--- NOTE | 2024-04-12 13:13 | CTL ---
EXAMINATION TYPE: CT Low Dose Lung DATE OF EXAM ORDERED: 04/12/2024 HISTORY: 69-year-old female with Z1 2.2, F1 7.210, personal history of tobacco use, former smoker wit h 40 pack-year history. Lung cancer screening CT DLP: 112.[address] CTDI: 3.3 mGy Automated exposure control for dose reduction was used. SCREENING VISIT: Annual follow-up COMPARISON: 03/31/2023 TECHNIQUE: Low dose computed tomography scan was performed through the chest at 1 mm thick sections a nd reconstructed images in multiple planes at 1 mm and [address] DIAGNOSTIC QUALITY: Satisfactory FINDINGS: The heart is normal size with trace anterior pericardial fluid. Borderline ectasia ascending aorta 3.5 cm. Mild atherosclerotic arch calcifications. Bovine configura tion to the aortic arch. No thoracic lymphadenopathy by CT size criteria. Strandy scarring at the bilateral mid and lower lungs redemonstrated. No consolidation or pleural eff usion. No suspicious pulmonary nodule or mass identified. There is a small to moderate size hiatal hernia redemonstrated. Postsurgical changes of sleeve gastre ctomy. Tiny hilar splenule. Bones: Moderate to advanced degenerative disc disease lower thoracic and upper lumbar spine. IMPRESSION: 1. Low grade 1, negative. No suspicious pulmonary nodules. 2. Stable strandy scarring at the bilateral mid and lower lungs. 3. Redemonstrated small to moderate-sized hiatal hernia. Post surgical changes of sleeve gastrectomy. CT LUNG RAD AND CT CHEST RECOMMENDATION: Lung-Rad 1 Negative: Continue annual screening with LDCT in 12 months. S Modifier (other clinically significant findings): None
== END | disposition home or self-care (01) ==
LOC: RADCTMAIN 11:09
PROVIDERS: ATTEND Internal Medicine Critical Care Medicine
DX: Z12.2 Encounter for screening for malignant neoplasm of respiratory organs (principal); J98.4 Other disorders of lung; K44.9 Diaphragmatic hernia without obstruction or gangrene; F17.210 Nicotine dependence, cigarettes, uncomplicated
CPT/HCPCS: 71271

== ENCOUNTER → 2024-05-12 | Outpatient (CLI) | payer BC ==
--- NOTE | 2024-05-12 15:23 | US ---
EXAMINATION TYPE: US kidneys/renal and bladder DATE OF EXAM: 05/12/2024 COMPARISON: CT abdomen and pelvis 01/22/2022 CLINICAL INDICATION: Female, 69 years old with history of N18.31 CHRONIC KIDNEY DISEASE STG 3A; Abnor mal labs. EXAM MEASUREMENTS: Right Kidney: 10.4 x 4.7 x 4.8 cm Left Kidney: 10.3 x 3.9 x 5.3 cm Right Kidney: Cortical thinning Left Kidney: Two anechoic lesions seen with largest lateral lower = 0.7 x 0.6 x 0.6 cm Bladder: Anechoic, distended Left jet seen There is no evidence for hydronephrosis at this point in time. Cortical thinning of the right kidney. Cortical medullary differentiation is maintained bilaterally. No nephrolithiasis is seen. There are 2 left renal simple cysts with largest measuring up to 7 mm. The urinary bladder is anechoic. Left ur eteral jet is only seen. IMPRESSION: 1. No hydronephrosis or nephrolithiasis. 2. Small left renal cysts. 3. Findings suggestive of chronic medical renal disease involving the right kidney.
--- NOTE | 2024-05-16 09:56 | MM ---
Reason for Exam: Screening (asymptomatic). Last mammogram was performed 1 year(s) and 2 month(s) ago. Patient History: Menarche at age 11. Patient has no children. Postmenopausal. Patient used Estrogen for 1 year. Patient used Progesterone for 1 year. Mother had breast cancer, age 41. Risk Values: Minerva 5 year model risk: 3.4%. NCI Lifetime model risk: 9.7%. Prior Study Comparison: 02/14/2021 Bilateral Screening Mammogram, [facility]. 03/13/2022 Bilateral MG 3D screening mammo w/cad, [facility]. 03/10/2023 Bilateral MG 3D screening mammo w/cad, [facility]. Tissue Density: There are scattered areas of fibroglandular density. Findings: Analyzed By CAD. Right breast: There is no suspicious group of microcalcifications or new suspicious mass. Left breast: There is no suspicious group of microcalcifications or new suspicious mass. Overall Assessment: Negative, BI-RAD 1 Management: Screening Mammogram of both breasts in [address] [facility] will attempt to contact patient to return for supplemental views and ultrasound if indicated. Patient should continue monthly self-breast exams. A clinical breast exam by your physician is recommended on an annual basis. This exam should not preclude additional follow-up of suspicious palpable abnormalities. Note on Minerva scores and lifetime risk: 1. A Minerva score greater than 3% is considered moderate risk. If this is the case, consider specialist referral to assess eligibility for a risk reducing agent. 2. If overall lifetime risk for the development of breast cancer is 20% or higher, the patient may qualify for future screening with alternating mammogram and breast MRI. Electronically signed and approved by: Denver Lynn DO
== END | disposition home or self-care (01) ==
LOC: RADUSWWP 14:39
PROVIDERS: ATTEND Internal Medicine
DX: Z12.31 Encounter for screening mammogram for malignant neoplasm of breast (principal); R92.323 Mammographic fibroglandular density, bilateral breasts; N18.31 Chronic kidney disease, stage 3a; N28.1 Cyst of kidney, acquired; Z78.0 Asymptomatic menopausal state; Z80.3 Family history of malignant neoplasm of breast
CPT/HCPCS: 76770; 77063; 77067

== ENCOUNTER → 2024-06-09 | Outpatient (CLI) | payer BC ==
--- NOTE | 2024-06-27 12:42 | CT ---
Patient: Eli Roland Ordering Physician: Unknown, Unknown ID: [id number] Phone, Pager: Phon e: N/A Pager: N/A : 1955 Age/Gender: 69Y, F Primary Location: N/A Procedure: CT abdomen pelvi s w con Study Date: 06/09/2024 12:31:00 PM EXAMINATION TYPE: CT abdomen pelvis w con DATE OF EXAM: 06/09/2024 COMPARISON: 01/22/2022 INDICATION: Left upper abdominal pain left flank pain DLP: 1363.3 mGycm, Automated exposure control for dose reduction was used. CONTRAST: 80 mL of Isovue 300. Study performed with Oral Contrast TECHNIQUE: Axial images were obtained from above the diaphragm to the pubic rami in the axial plane a t 5 mm thick sections. Reconstructed images are reviewed on the computer in the coronal plane. FINDINGS: Limited CT sections are obtained the lung bases. The lung bases are clear. There is a small hiatal hernia present. CT ABDOMEN: Liver: Normal Spleen: Normal Pancreas: Normal Adrenal glands: The adrenal glands are normal. Gallbladder: Normal Kidneys: No masses are evident. No hydronephrosis is present. No cysts are present. Delayed images were obtained through the kidneys, which remain unremarkable. Aorta: Vascular calcification is within the aorta. Inferior vena cava: Normal. CT PELVIS: Loops of bowel within the abdomen and pelvis are normal. Fecal debris is within the colon. No dilated loops of bowel are evident. There are loops of bowel which are incompletely distended or lack ora l contrast limiting their evaluation. Appendix: Not identified. No dilated tubular structure or inflammatory change is evident. Urinary bladder: Normal. Genitourinary structures: Uterus and adnexa are normal Osseous structures: No suspicious lytic or sclerotic lesions. Degenerative disc change and scoliosis to the lumbar spine IMPRESSION: 1. No suspicious abnormality to account for left upper quadrant pain
== END | disposition home or self-care (01) ==
LOC: RADCTMAIN 10:18
PROVIDERS: ATTEND Internal Medicine
DX: R10.12 Left upper quadrant pain (principal); R10.9 Unspecified abdominal pain
CPT/HCPCS: 74177; 36415; Q9967

== ENCOUNTER → 2025-04-26 | Outpatient (CLI) | payer BC ==
--- NOTE | 2025-04-26 13:39 | US ---
EXAMINATION TYPE: US carotid duplex BILAT DATE OF EXAM: 04/26/2025 COMPARISON: NONE CLINICAL INDICATION: Female, 70 years old with history of [id number] CAROTID STENOSIS; Patient states she has high cholesterol and is a previous smoker/currently vapes. Additional History: .... TECHNIQUE: Grayscale, color Doppler and spectral Doppler evaluation of the bilateral carotid systems and vertebral arteries. Indirect Doppler criteria was utilized. 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 Color Doppler imaging shows patency with blood flow throughout the carotid artery. Spectral waveforms are within normal limits. IMPRESSION: Right: No hemodynamically significant stenosis. Left: No hemodynamically significant stenosis. Criteria for Assigning % of Stenosis / Diameter reduction (Estimation based on the indirect measurements of the internal carotid artery velocities (ICA PSV). 1. Normal (no stenosis)=ICA PSV < 180 cm/s: ratio < 2.0: ICA EDV<40 cm/s. 2. Less than 50% stenosis=ICA PSV < 180 cm/s: ratio < 2.0: ICA EDV<40 cm/s. 3. 50 to 69% stenosis=ICA PSV of 180 to 230 cm/s: ration 2.0 ? 4.0: ICA EDV 40-100 cm/s. PSV 125-180 cm/sec and ICA/CCA PSV Ratio ? 2.0 is also consistent with 50-69% stenosis 4. Greater than 70% stenosis to near occlusion= ICA PSV > 230 cm/s: ratio > 4.0: ICA EDV > 100 cm/s. 5. Near occlusion= ICA PSV velocities may be low or undetectable: variable ratio and ICA EDV. 6. Total occlusion=unable to detect flow. [facility], , 04/26/2025 1:36 PM
--- NOTE | 2025-04-26 15:12 | CA ---
Transthoracic Echo Report Name: Eli Roland Age: 70 Gender: F : 1955 Exam Date: 04/26/2025 13:07 Exam Location: [facility] Ht (in): 62 Wt (lb): 145 Ordering Physician: Leyla Crenshaw MD Attending/Referring Phys: Warp Picker Judi Hastings RDCS Procedure CPT: Indications: I65.23 CAROTID STENOSIS R60.0 EDEMA I34.0 MITRAL Cardiac Hx: Technical Quality: Good Contrast 1: Total Dose (mL): Contrast 2: Total Dose (mL): MEASUREMENTS (Male / Female) Normal Values 2D ECHO LV Diastolic Diameter PLAX 4.4 cm 4.2 - 5.9 / 3.9 - 5.3 cm LV Systolic Diameter PLAX 3.0 cm IVS Diastolic Thickness 1.0 cm 0.6 - 1.0 / 0.6 - 0.9 cm LVPW Diastolic Thickness 1.0 cm 0.6 - 1.0 / 0.6 - 0.9 cm LV Relative Wall Thickness 0.5 RV Internal Dim ED PLAX 3.4 cm LVOT Diameter 1.6 cm Aortic Root Diameter 2.8 cm LA Systolic Diameter LX 3.1 cm 3.0 - 4.0 / 2.7 - 3.8 cm LV Diastolic Volume MOD BP 91.6 cm??? 67 - 155 / 56 - 104 cm??? LV Systolic Volume MOD BP 39.3 cm??? 22 - 58 / 19 - 49 cm??? LV Ejection Fraction MOD BP 57.1 % >= 55 % LV Cardiac Index MOD BP 2289.8 cm???/min???m??? LV Diastolic Volume MOD 4C 89.6 cm??? LV Systolic Volume MOD 4C 38.4 cm??? LV Ejection Fraction MOD 4C 57.2 % LV Cardiac Index MOD 4C 2243.5 cm???/min???m??? LV Diastolic Length 4C 7.6 cm LV Systolic Length 4C 6.8 cm LV Diastolic Volume MOD 2C 88.2 cm??? LV Systolic Volume MOD 2C 39.6 cm??? LV Ejection Fraction MOD 2C 55.1 % LV Cardiac Index MOD 2C 2126.4 cm???/min???m??? LV Diastolic Length 2C 7.2 cm LV Systolic Length 2C 6.7 cm LA Volume 57.6 cm??? 18 - 58 / 22 - 52 cm??? LA Volume Index 33.6 cm???/m??? 16 - 28 cm???/m??? DOPPLER MV Area PHT 3.3 cm??? Mitral E Point Velocity 51.8 cm/s Mitral A Point Velocity 85.8 cm/s Mitral E to A Ratio 0.6 MV Deceleration Time 231.5 ms TR Peak Velocity 233.2 cm/s TR Peak Gradient 21.7 mmHg Right Atrial Pressure 5.0 mmHg Pulmonary Artery Systolic Pressu 26.7 mmHg Right Ventricular Systolic Press 26.7 mmHg FINDINGS Left Ventricle Left ventricular ejection fraction is estimated at 60-65%. Mildly increased posterior wall thickness. Normal left ventricular systolic function with no obvious regional wall motion abnormalities. Left ventricular cavity size normal. Right Ventricle Normal right ventricular size and function. Right ventricular systolic pressure within normal limits. Right Atrium Normal right atrial size. Left Atrium Mildly increased left atrial volume. Mitral Valve Mitral annular calcification. No mitral stenosis. Trace mitral regurgitation. Aortic Valve Trileaflet aortic valve. No aortic valve stenosis or regurgitation. Tricuspid Valve Structurally normal tricuspid valve. No tricuspid stenosis. Trace tricuspid regurgitation. Pulmonic Valve Structurally normal pulmonic valve. No pulmonic stenosis. Trace pulmonic regurgitation. Pericardium No pericardial effusion. Aorta Aortic annulus normal. CONCLUSIONS Reason: Mitral valve disease, lower extremity edema LVH with preserved systolic function Mitral annular calcification with trace regurgitation Previewed by: Dr. Rudy Lee MD (Electronically Signed) Final Date: 26 April 2025 15:11
== END | disposition home or self-care (01) ==
LOC: RADUSWWP 12:34
PROVIDERS: ATTEND Internal Medicine
DX: I65.23 Occlusion and stenosis of bilateral carotid arteries (principal); I34.0 Nonrheumatic mitral (valve) insufficiency; R60.0 Localized edema; I34.81 Nonrheumatic mitral (valve) annulus calcification
CPT/HCPCS: 93306; 93880